=== PATIENT | female | born 1935 | race Caucasian/White ===

== ENCOUNTER 2024-05-23 23:42 | Inpatient (IN) | payer OTHER, SELFPAY ==
[2024-05-23] VITALS (7 sets, daily range): BP systolic 80–109; BP diastolic 37–68; BMI 27.3
--- NOTE | 2024-05-23 20:33 | ED.GENMED ---
History of Present Illness
General
Chief Complaint: Musculo-Skeletal Complaint
Source: patient
Exam Limitations: none
Time Seen by Provider: 05/23/24 20:31
History of Present Illness
History of Present Illness:
See MDM
Past History
Past History
ED Past Medical History: HTN, NIDDM and Other (vertigo)
ED Past Surgical History: Appendectomy, Cholecystectomy, Gynecological (Hysterectomy) and Orthopedic
Social History
Tobacco: Non-smoker
Personal: Single
Living: alone
Phy Exam
Physical Exam
Physical Exam:
See MDM
Sepsis
Sepsis Screening
Sepsis Assessment: Severe Sepsis
Sepsis Screening: Hypotension and Sustained Hypotension-SBP <90,MAP<65, or SBP decrease 40mmHg or more
Sepsis Screen
Sepsis Screen: Severe Sepsis
Date: 05/23/24
Time: 23:25
Course
Orders/Labs/Results
Orders:
Orders
05/23/24 20:32
CT Head W/o Iv Contrast Urgent
Comment:
Reason For Exam: fall, altered
Ankle, Right 3 view CR [CR Ankle - Right Min 3 Views *] Urgent
Comment:
Reason For Exam: fall, R ankle pain
Hip, Right 2-3 Views [CR Hip - RT w/wo Pel 2-3 Vw*] Urgent
Comment:
Reason For Exam: fall, R hip pain
Include a pelvis x-ray?: Yes
05/23/24 20:33
Electrocardiogram (*1) Urgent
Reason for Study: Fatigue / Weakness
EKG- Treatment ONCE
05/23/24 20:59
Type+Screen Urgent
Complete Blood Count/With Diff Urgent
Comprehensive Metabolic Panel Urgent
NT-proBNP Urgent
PTT Urgent
Prothrombin Time Urgent
Troponin I Urgent
Urinalysis Reflex To Culture Urgent
Date Specimen was Collected: 05/23/24
Time Specimen was Collected: 20:45
Urine Microscopic Reflex Cult Urgent
Urine Culture Urgent
ERIKA Source: U
Specimen Description:
Date Specimen was Collected: 05/23/24
Time Specimen was Collected: 20:45
05/23/24 21:31
Cefepime HCl [Maxipime] 1,000 mg IV NOW STA
05/23/24 21:49
Lactic Acid Q4H
Comment: CANCEL 2nd LACTIC ACID IF 1st LACTIC ACID IS LESS THAN 2
Blood Culture Q30M
ERIKA Source: Blood/Venous
Specimen Description:
Blood Culture Q30M
ERIKA Source: Blood/Venous
Specimen Description:
05/23/24 22:07
0.9% Sodium Chloride 1000 ml [Nss] 1,000 ml IV BOLUS
05/23/24 22:39
EKG [Electrocardiogram (*1)] Urgent
Reason for Study: Bradycardia / Tachycardia
EKG- Treatment ONCE
05/23/24 23:00
Flush (0.9% Sodium Chloride) [Flush (Nss)] See Dose Instructions IV PER PROTOCOL
05/24/24 01:45
Lactic Acid Q4H
Comment: CANCEL 2nd LACTIC ACID IF 1st LACTIC ACID IS LESS THAN 2
Abnormal Lab Results
05/23/24
20:59
WBC 14.5 H 10^3/uL
(4.8-10.8)
RBC 3.40 L 10^6/uL
(4.20-5.40)
Hgb 8.0 L g/dL
(12.0-16.0)
Hct 25.4 L %
(37.0-47.0)
MCV 74.7 L fL
(81.0-99.0)
MCH 23.5 L pg
(27.0-31.0)
MCHC 31.5 L g/dL
(33.0-37.0)
RDW 15.4 H %
(11.5-14.5)
Plt Count 92 L 10^3/uL
(130-400)
Abs Immat Gran (auto) 0.1 H 10^3/uL
(0-0.05)
Absolute Neuts (auto) 13.1 H 10^3/uL
(1.4-6.5)
Absolute Lymphs (auto) 0.5 L 10^3/uL
(1.2-3.4)
Absolute Monos (auto) 0.9 H 10^3/uL
(0.1-0.6)
Neutrophils % 90.2 H %
(42.2-75.2)
Lymphocytes % 3.1 L %
(20.5-51.1)
APTT 35.5 H Sec
(23.4-35.0)
BUN 54 H mg/dl
(7-17)
Creatinine 1.4 H mg/dL
(0.6-1.0)
Glucose 149 H mg/dl
(70-99)
AST 37 H U/L
(14-36)
ALT 46 H U/L
(0-35)
Total Protein 6.0 L g/dl
(6.3-8.2)
Ur Occult Blood Reflex 3+ A
(Negative)
Urine Nitrite (Reflex) Positive A
(Negative)
Leukocyte Esterase Rfl 2+ A
(Negative)
Urine WBC (Reflex) >100 A /HPF
(0-5)
Urine Albumin (Reflex) 1+ A
(Neg - Trace)
05/23/24 20:59
05/23/24 20:59
Vital Signs
Initial and Last Documented VS:
Initial Vital Signs
Temp Pulse Resp BP Pulse Ox
90.3 F L 54 12 98/64 100
05/23/24 20:30 05/23/24 20:30 05/23/24 20:30 05/23/24 20:30 05/23/24 20:30
Last Documented Vital Signs
Temp Pulse Resp BP Pulse Ox
90.3 F L 56 16 109/68 99
05/23/24 20:30 05/23/24 22:44 05/23/24 22:44 05/23/24 22:44 05/23/24 22:44
MDM/Problems Addressed
Differential Diagnosis Includes:
HPI and MDM Narrative:
88-year-old female presenting for evaluation of altered mental status and trouble with weightbearing. Per EMS, patient had a fall 2 days ago. Since then, she has had trouble weightbearing and decreased p.o. intake. Family states she has a history
of dementia but has noted that she has been more confused lately. On exam, patient is lying in bed comfortably and in no acute distress. She does wince when her right hip and her right ankle are palpated. The extremity is otherwise
neurovascularly intact but is a few inches shorter compared to the other side. Patient found to be bradycardic but denies chest pain or shortness of breath. She is a poor historian given her dementia. Patient also found to have pitting edema to
both legs which is new per family
Given the fall and altered mental status, will obtain CT head. Given the fall and trouble weightbearing, will obtain right hip and right ankle x-ray. Will obtain EKG and basic blood work and ultimately admit
Physical exam
General: Sitting in bed comfortably. Smiling
HEENT: protecting airway
Neck: supple
CV: No evidence of cyanosis. Bradycardic
Resp: No accessory muscle use
Abd: No tenderness to palpation
Extremities: Tenderness to palpation of right hip and right ankle. Right leg is shorter compared to left leg. Sensation and pulses intact distally. Bilateral +2 pitting edema bilateral legs
Neuro: alert
Psych: Flat affect
Skin: Intact
Problems Addressed including Acute and Chronic Conditions affecting care:
1. Right hip and ankle injury
Acuity: acute
Prognosis: stable
Details: Will obtain x-ray to rule out fracture
2. Altered mental status after fall
Acuity: acute
Prognosis: stable
Details: Will obtain CT head
3. Bradycardia with pitting edema
Acuity: acute
Prognosis: stable
Details: Will obtain basic blood work, troponin and BNP
Updates
8:38 PM soon after arrival, vital signs obtained and patient found to be hypothermic requiring Luis Angel hugger
9:20 PM both sons are at bedside and confirming DNR status
No obvious fracture of ankle or hip. When we rolled the patient to assess her stool, there is no pain elicited. The pain appears to be improved. Rectal exam shows brown stool guaiac negative
Patient started on cefepime for UTI and started on IV fluids for hypotension.
Differential Diagnosis (but not limited to): Congestive heart failure, right hip fracture, right ankle fracture, UTI
Testing considered: CT neck with there is no tenderness to palpation
Drug therapy (if applicable): OTC meds, please see d/c instruction regarding Rx drugs
Amount and/or Complexity of Data Reviewed
Clinical info obtained from: EMS
External data reviewed: N/A
Labs I independently reviewed (but not limited to): WBC, UA
Radiology: The CT scan was personally and independently reviewed. In addition, official CT report reviewed.
Pulse Ox: not hypoxic
EKG independently reviewed: Sinus bradycardia, normal axis, no STEMI
Environmental Resource Specialist: Bradycardia
Critical Care: the high probability of a clinically significant, sudden or life threatening deterioration of the cardiopulmonary system(s) required my full and direct attention, intervention and personal management. The aggregate critical care
time was 31 minutes. This time is in addition to time spent performing reported procedures but includes the following:
[x] Data Review and interpretation
[x] Patient assessment and monitoring of vital signs
[x] Documentation
[x] Medication orders and management
Risk of Complication:
Social Determinants of health: Good social support
Discussed with other providers: Hospitalist
Escalation of Care includes Admit/Obs: Given the altered mental status and concern for severe sepsis, will admit
Occasional wrong word or 'sound a like' substitutions may have occurred due to the inherent limitations of voice recognition software. Read the chart carefully and recognize, using context, where substitutions have occurred.
*Critical Care Note
Total Time (30-74mins, 75-104mins- exclusive of procedures): 31 min
ED Attending Note
-
Portions of this chart may have been created with voice recognition software.� Occasional wrong word or��sound alike� substitutions may have occurred due to the inherent limitations of voice recognition software.
Discharge Plan
Departure
Patient Disposition: Admit
Date of Disposition: 05/23/24
Time of Disposition: 22:16
Admit to: IMU
Presentation/result/management discussed w/ accepting MD/DO: Hospitalist
Discharge Problem:
Sepsis, Acute UTI, Anemia
Prescriptions:
No Action
losartan-hydrochlorothiazide 1 EACH tablet
1 ea PO DAILY
doxycycline hyclate 20 MG tablet
1 tab PO MOWEFR PRN (Reason: rosacea)
glipizide 10 MG tablet extended release 24hr
20 mg PO DAILY
omeprazole 20 MG capsule,delayed release(DR/EC)
20 mg PO PRN PRN (Reason: gerd)
Ca-D3-mag dl-eoyr-wxe-georgi-bor [Calcium 600-D3 Plus (mag-zinc)] 1 EACH tablet
1 ea PO DAILY
calcium carbonate [Antacid (calcium carbonate)] 1 TABLET tablet,chewable
1 tab PO PRN PRN (Reason: GERD)
Referrals:
Evi Zheng CRNP [Family Provider] -
Interventions
Interventions:
*Risk Screen - Suicide Last Done: 05/23/24 20:30
*General Assessment Last Done: 05/23/24 20:30
*Neglect/Abuse Screening Last Done: 05/23/24 20:30
ED- Fall Risk Assessment Last Done: 05/23/24 21:16
*ED COVID-19 Vaccine History Last Done: 05/23/24 21:16
ED-Musculoskeletal Assessment Last Done: 05/23/24 21:16
Discharge Date and Time
Print Language: FRENCH
[2024-05-23 21:14] LABS: % Basophils 0.3 % (0-2); % Eosinophils 0.1 % (0-6); % Immature Granulocytes 0.5 % (0-0.5); % Lymphocytes 3.1 % (20.5-51.1); % Monocytes 5.8 % (1.7-9.3); % Neutrophils 90.2 % (42.2-75.2); Absolute Immature Granulocytes 0.1 10^3/uL (0-0.05); Absolute Lymphocytes 0.5 10^3/uL (1.2-3.4); Absolute Monocytes 0.9 10^3/uL (0.1-0.6); Absolute Neutrophils 13.1 10^3/uL (1.4-6.5); Hematocrit 25.4 % (37.0-47.0); Mean Corp Hgb Conc. 31.5 g/dL (33.0-37.0); Mean Corpuscular Hgb 23.5 pg (27.0-31.0); Mean Corpuscular Volume 74.7 fL (81.0-99.0); Nucleated Red Blood Cells % 0.7 %; Red Cell Dist. Width 15.4 % (11.5-14.5); White Blood Cell Count 14.5 10^3/uL (4.8-10.8)
[2024-05-23 21:17] LABS: INR 1.06; PT 14.1 Sec (11.4-14.6)
[2024-05-23 21:18] LABS: APTT 35.5 Sec (23.4-35.0)
[2024-05-23 21:21] LABS: ALT (SGPT) 46 U/L (0-35); AST (SGOT) 37 U/L (14-36); Albumin 3.6 g/dl (3.5-5.0); Alkaline Phosphatase 115 U/L (38-126); Blood Urea Nitrogen 54 mg/dl (7-17); Calcium 9.1 mg/dl (8.4-10.2); Carbon Dioxide 24 mmol/L (22-30); Chloride 106 mmol/L (98-107); Glucose 149 mg/dl (70-99); Potassium 4.3 mmol/L (3.5-5.1); Sodium 141 mmol/L (135-145); Total Bilirubin 0.3 mg/dl (0.2-1.3); eGFR 36.64
[2024-05-23 21:23] LABS: Urine Albumin 1+ (Neg - Trace); Urine Bilirubin Negative (Negative); Urine Character Very Cloudy (Clear); Urine Color Yellow; Urine Glucose Negative (Negative); Urine Ketone Negative (Negative); Urine Leukocyte 2+ (Negative); Urine Nitrite Positive (Negative); Urine Occult Blood 3+ (Negative); Urine Specific Gravity 1.025 (<1.030); Urine Urobilinogen Negative (Neg - 1+)
[2024-05-23 21:34] LABS: NT-proBNP 491 pg/ml; Troponin I 0.018 ng/ml
[2024-05-23 21:50] LABS: Platelet Count 92 10^3/uL (130-400)
[2024-05-23 21:54] LABS: Urine White Cell >100 /HPF (0-5)
[2024-05-23] MEDS: MAXIPIME 1000 MG IV (22:01)
[2024-05-23 22:07] LABS: Lactic Acid 1.3 mmol/L (0.7-2.0)
[2024-05-23] MEDS: NSS 1000 IV (22:11)
--- NOTE | 2024-05-23 22:39 | EDRN ---
2233: Pt with an approximately 30second long pause with agonal respirations. This RN immediately to the bedside and alerted additional ER staff and pt ER physician Dr. Lobo. Pt appeared to be asystole which resolved independently. Repeat EKG
ordered. Pt awake and conversant at this time, currently asking if she is staying overnight.
--- NOTE | 2024-05-23 23:05 | HPS.HSE ---
Family Physician
-
Family Physician: Evi Zheng
Chief Complaint
-
Weakness and fall found to have urinary tract infection and sepsis
History of Present Illness
This is a 88-year-old female with past medical history of mfx-dwnptxz-[id number] diabetes, GERD, hypertension and hyperlipidemia who also has advanced dementia of unknown type presented to the emergency department with a fall about 2 days ago.
Family denies any loss of consciousness. Patient was unable to provide much history. They reported that she has had some altered mental status for the last 2 days. They did not know if she has had any fevers or chills. She is unable to tell if
she has had any other symptoms. No apparent nausea vomiting or diarrhea. No apparent dysuria but patient is unable to tell us anything. She had no immediate trauma. Due to ongoing altered mental status the patient was brought to the emergency
department. There is no known sick contacts.
In the ED she was found to be hypothermic to 90.3, blood pressure was 110/68 with a pulse of 50 and satting 99% on room air. ECG shows sinus bradycardia to 46 without any interval abnormalities. She had a white count of 14.5 hemoglobin was 8 and
platelet count was 92. Electrolytes were normal. BUN and creatinine were elevated at 54 and [address] was unremarkable. Hip x-ray shows no acute fractures or dislocation. Ankle x-ray shows no fracture or dislocation.
Medical History
Past Medical History
Past Medical History: Reports GERD, HTN and NIDDM
Past Surgical History: Reports Appendectomy, Cholecystectomy and Orthopedic (Left knee replacement, right knee replacement,)
Social History
Tobacco: Non-smoker
Alcohol: None
Drug: None
Personal: Single
Living: With Family
Family History
Family History: Not pertinent
Allergies / Home Medications
Allergies reflects when Allergies were last updated in [facility].
Home Medications with original date entered in [facility]
Allergy/Medication List:
Allergies
Allergy/AdvReac Type Severity Reaction Status Date / Time
Iodinated Contrast Media Allergy Hives Verified 07/19/19 14:20
oxycodone HCl AdvReac Mild Vomiting Verified 07/19/19 14:20
[From OxyContin]
IV kidney dye Allergy Hives Uncoded 07/19/19 14:20
Home Medications
losartan 100 mg-hydrochlorothiazide 12.5 mg tablet 1 ea PO DAILY 12/08/12
doxycycline hyclate 20 mg tablet 1 tab PO MOWEFR PRN rosacea 09/22/13
calcium 600 mg-D3 20 mcg-magnesium 50 he-Ak-hjkzoa-william-boron tablet (Calcium 600-D3 Plus (mag-zinc)) 1 ea PO DAILY 07/19/19
calcium carbonate (Antacid (calcium carbonate)) 1 tab PO PRN PRN GERD 07/19/19
glipizide 10 mg tablet, extended release 24 hr 20 mg PO DAILY 07/19/19
omeprazole 20 mg capsule,delayed release 20 mg PO PRN PRN gerd 07/19/19
Review of Systems
-
Unable to obtain full review of systems at this time due to: Dementia
Physical Exam
Vital Signs
Vital Signs
Temp Pulse Resp BP Pulse Ox
90.3 F L 56 16 109/68 99
05/23/24 20:30 05/23/24 22:44 05/23/24 22:44 05/23/24 22:44 05/23/24 22:44
Physical Exam
General: Well Developed, No Apparent Distress and Comfortable
HEENT: NormoCephalic, Anicteric and Moist mucous membranes
Respiratory: Clear
Cardiac: S1/S2 and Bradycardia
Breast: Deferred by me
GI: Soft, Non Tender, Non Distended and Normal Bowel Sounds
Rectal: Deferred by Provider
Genito-urinary: Deferred by me
Musculoskeletal: No Clubbing, No Cyanosis and No Edema
Neuro: Awake and Oriented (oriented to person and place)
Hematologic/Lymphatic: No Lymphadenopathy
Psych: Calm
Laboratory Results
-
05/23/24 20:59
05/23/24 20:59
Laboratory Results
PT 14.1 Sec (11.4-14.6) 05/23/24 20:59
INR 1.06 05/23/24:59
APTT 35.5 Sec (23.4-35.0) H 05/23/24:59
Lactic Acid 1.3 mmol/L (0.7-2.0) 05/23/24 21:49
Total Bilirubin 0.3 mg/dl (0.2-1.3) 05/23/24:59
AST 37 U/L (14-36) H 05/23/24:59
ALT 46 U/L (0-35) H 05/23/24:59
Alkaline Phosphatase 115 U/L (38-126) 05/23/24:59
Troponin I 0.018 ng/ml 05/23/24:59
Data Reviewed
-
Diagnostic Radiology: Report Reviewed by me
CT Scan: Report Reviewed by me
Medical Tests (Nuc Med, Echo, EKG etc): Image Personally Visualized and interpreted
Lab Data: Labs Reviewed by me
Impression/Plan
-
IMPRESSION:
88-year-old female presenting to the emergency department with 2 days of altered mental status and multiple falls at home without any signs of trauma on exam or imaging. Found to have hypothermia, leukocytosis and very positive UA concerning for
urinary source dependent sepsis. While in the emergency department she did developed a pulse after about 30 seconds long and spontaneously recovered.
PLAN:
1. Sepsis - Likely urinary source. No respiratory symptoms. HD stable but severe hypothermia.
- admit to ICU
- warming measures
- blood cultures, urine cultures
- check xray
- cefepime iv q 8 for now
- trend lactate check procal in am
- IV fluids for now, pressors may be needed
- hold anti hypertensives
- check tsh , cortisol
2. Bradycardia with sinus pause - 30 second pause. Spontenous recovery with improved mental status. No interval anomally. Patient is on metoprolol at home. D/W family, ppm temporary or otherwise ok.
- hold all beta blocking agents
- continue warming and sepsis management
- if persistently bradycardic, will start dopamine gtt
- if not effective, cardiology will place temporary ppm
- pads on
- cardiology consult
3. DM II
- insulin sliding scale q6h for now
- npo with sips of clears
4. Anemia - She appears to have pancytopenia, worse from 1 year ago.
- type and screen
- check iron studies, tsh, and b12, folate
- trend h&h transfuse for Hgb < 8
DVT PPX - heparin sq
Code status - DNR
--- NOTE | 2024-05-23 23:40 | EDRN ---
2340: pt with another approximate 20 second pause with snoring respirations. PT returned to sinus bradycardia, awake and alert, without intervention. Dr. Flores made aware, verbal orders to pace patient if heart rate drops to the 30s or becomes
hypotensive. Plan of care ongoing, new orders followed.
[2024-05-24] VITALS (59 sets, daily range): BP systolic 81–128; BP diastolic 55–83; PULSE 80; BMI 25.7
[2024-05-24] MEDS: DOPamine 400 MG 250 IV ×2 (00:06→17:32)
[2024-05-24 00:20] LABS: Glucose - Point of Care 132 mg/dl (70-99)
[2024-05-24] MEDS: NOVOLOG FLEXPEN-LOW RESISTANCE SC ×5 (00:23→23:47)
--- NOTE | 2024-05-24 00:30 | PTCARENOTE ---
Rec'd pt from ER via stretcher on dopa gtt at 5mic accomp by WATCH DIAL PRINTER, Pt oriented to icu routine, confused, awake, follows simple commands, CHG bath done, JOSÉ LUIS at 3mm, sluggish, SR, BP stable, dopa to keep hr >50, weak distal pulses, + LE edeam, skin
cool/dry, temp 91.8 R- warming blanket applied, O2 2 liters nc, sat 94, lungs decr, hypo bowel sounds, purewick applied
[2024-05-24] MEDS: NSS 1000 IV ×3 (00:57→19:18)
[2024-05-24] MEDS: ZOFRAN 4 MG IV (01:00)
--- NOTE | 2024-05-24 01:00 | PTCARENOTE ---
vomited brown food particles, zofran 4mg iv given
[2024-05-24 04:15] LABS: Hematocrit 24.8 % (37.0-47.0); Hemoglobin 7.7 g/dL (12.0-16.0); Mean Corpuscular Hgb 23.3 pg (27.0-31.0); Mean Corpuscular Volume 74.9 fL (81.0-99.0); Platelet Count 104 10^3/uL (130-400); Red Blood Cell Count 3.31 10^6/uL (4.20-5.40); Red Cell Dist. Width 15.6 % (11.5-14.5); White Blood Cell Count 18.7 10^3/uL (4.8-10.8)
--- NOTE | 2024-05-24 04:15 | PTCARENOTE ---
sys reviewed, pulling off mamadou hugger, wanting to climb oob, bed alarm on,bilat mitts applied
[2024-05-24 04:36] LABS: Blood Urea Nitrogen 54 mg/dl (7-17); Calcium 8.5 mg/dl (8.4-10.2); Carbon Dioxide 20 mmol/L (22-30); Chloride 111 mmol/L (98-107); Estimated Creatinine Clearance 25 ml/min; Glucose 84 mg/dl (70-99); HDL Cholesterol 92 mg/dl; Iron 38 ug/dl (37-170); LDL Cholesterol, Calculated 22 mg/dl; Magnesium 1.8 mg/dl (1.6-2.3); Phosphorus 3.7 mg/dl (2.5-4.5); Potassium 4.2 mmol/L (3.5-5.1); Sodium 143 mmol/L (135-145); Total Cholesterol 131 mg/dl (50-199); Triglyceride 86 mg/dl (10-149); Very Low Density Lipoprotein 17 mg/dl (0-30); eGFR 36.64
--- NOTE | 2024-05-24 04:36 | PTCARENOTE ---
Addendum entered by Jennifer Schmid RN 05/24/24 04:37:
sat- 88-O2 incr to 4 liters nc
Original Note:
6 sec pause, only P waves->SR
[2024-05-24 04:44] LABS: Percent Saturation 7 % (20-50); Total Iron Binding Capacity 480 ug/dl (265-497)
[2024-05-24 04:45] LABS: Troponin I 0.027 ng/ml
--- NOTE | 2024-05-24 04:57 | PTCARENOTE ---
bladder scanned for 123ml
[2024-05-24 05:10] LABS: Procalcitonin 0.08 ng/ml (0.0-0.25)
[2024-05-24 05:23] LABS: Vitamin B12 794 pg/ml (239-931)
[2024-05-24 05:41] LABS: Glucose - Point of Care 72 mg/dl (70-99)
--- NOTE | 2024-05-24 06:02 | PTCARENOTE ---
while sleeping sat 88- o2 incr to 6 liters
--- NOTE | 2024-05-24 07:00 | PTCARENOTE ---
Received patient from night clerk auditor. patient is lethargic/drowsy arousable, confused. Responds to name. follows some simple commands. patient has bilateral mitts on. She is on 4L nasal cannula, 89%, now on 6L nasal cannula. Patient is in a
sinus rhythm on dopamine gtt. HR in 80s. Heparin for dvt prophalaxis. She is currently NPO. Purewick in place for urinary incontinence. IVF infusing into right AC. Assessment as charted.
[2024-05-24] MEDS: HEPARIN 5000 UNITS SC ×2 (07:43→16:47)
[2024-05-24] MEDS: DESENEX/MITRAZOL/ZEASORB 1 APPLIC TOPICAL ×2 (07:43→21:00)
--- NOTE | 2024-05-24 08:11 | CON.CAR ---
Addendum entered and electronically signed by Brennen Rosales MD 05/24/24 11:18:
88 yo female with PMH of CVA, paroxysmal SVT, aortic stenosis, dementia, DNR status admitted with UTI, septic shock, severe hypothermia. We are consulted for bradycardia. She is lethargic and does not offer history. Exam with RRR, II/ systolic
murmur at RUSB, trace LE edema. Bcx pending. Tele: SR, periods of 2:1, complete heart block. Also reported 30 sec of asystole in ED.
Continue dopamine. Toprol XL washout. Echo today. Discussed with EP: conduction abnormalities may be reversible in setting of severe hypothermia to 90F.
Original Note:
Consultation
Consultation Request
Date/Time Consultation Requested: 05/24/2024 00:04
Date/Time Consultation Performed: 05/24/2024 08:20
Requesting Provider: Dr. Dan
Performing Provider: JEFF Medina for Dr. Rosales
Reason for Consultation: Bradycardia
Medical History
-
Chief Complaint: Hip pain
History of Present Illness:
Melodie Woods is an 88-year-old female (known to Dr. Dennis Askew, her primary councilor), with SVT, hypertension, hyperlipidemia, type 2 diabetes mellitus, CVA, aortic stenosis, and dementia who presented after a fall. She was confused, having
difficulty weightbearing. She was found to be hypothermic and had episodes of bradycardia. Upon further review of telemetry she has complete heart block, Wenckebach, and sinus bradycardia. She is unable to participate in this consultation. She is
currently on dopamine at 5 mcg/kg/min. She has been admitted with sepsis. Her care is also being managed by infectious disease and the furnace maintenance service in addition to the hospitalist service.
Past Medical History
Past Medical History: Arrhythmias (SVT), CVA, HTN, Hypercholesterolemia, NIDDM, Valvular Disease (aortic stenosis) and Other (Dementia)
Past Surgical History: Appendectomy, Cholecystectomy, Gynecological and Orthopedic
Social History
Living: Assisted Living ([facility])
Employment: Retired
Family History
Family History: Unable to Obtain
Allergies / Home Medications
Allergy/AdvReac Type Severity Reaction Status Date / Time
Iodinated Contrast Media Allergy Hives Verified 07/19/19 14:20
oxycodone HCl AdvReac Mild Vomiting Verified 07/19/19 14:20
[From OxyContin]
�Medication �Instructions �Recorded �Confirmed �Type
losartan 100 1 ea PO DAILY 12/08/12 07/19/19 History
mg-hydrochlorothiazide 12.5 mg
tablet
doxycycline hyclate 20 mg tablet 1 tab PO MOWEFR PRN rosacea 09/22/13 07/19/19 History
calcium 600 mg-D3 20 mcg-magnesium 1 ea PO DAILY 07/19/19 07/19/19 History
50 br-Jl-meoane-william-boron
tablet (Calcium 600-D3 Plus
(mag-zinc))
calcium carbonate (Antacid 1 tab PO PRN PRN GERD 07/19/19 07/19/19 History
(calcium carbonate))
glipizide 10 mg tablet, extended 20 mg PO DAILY 07/19/19 07/19/19 History
release 24 hr
omeprazole 20 mg capsule,delayed 20 mg PO PRN PRN gerd 07/19/19 07/19/19 History
release
Review of Systems
-
Unable to obtain full review of systems at this time due to: Other (Unable)
Physical Exam
Vital Signs
Temp Pulse Resp BP Pulse Ox
95.9 F L 82 17 110/67 91
05/24/24 07:08 05/24/24 06:45 05/24/24 06:45 05/24/24 06:30 05/24/24 07:40
Lab Results
05/24/24 03:38
05/24/24 03:38
Troponin I 0.027 ng/ml D 05/24/24 03:38
Usz-U-Gyihyjryslt Pept 491 pg/ml 05/23/24 20:59
Physical Exam
General: Well Developed, Well Nourished and No Apparent Distress
HEENT: Normocephalic, Anicteric and Moist Mucous Membranes
Respiratory: Other (Coarse)
Cardiac: S1/S2, Irregular Rhythm and Peripheral Edema (+2 pitting bilateral lower extremity edema)
Breast: Deferred by me
GI: Soft, Non Tender, Non Distended and Normal Bowel Sounds
Rectal: Deferred by Provider
Genito-urinary: No Costovertebral Tender
Musculoskeletal: No Clubbing and No Cyanosis
Skin: Warm and Dry
Neuro: Other (Opens eyes spontaneously)
Hematologic/Lymphatic: No Lymphadenopathy
Psych: Calm
Impression / Plan
-
IMPRESSION/PLAN: 88F with SVT, hypertension, hyperlipidemia, type 2 diabetes mellitus, cardioembolic stroke, aortic stenosis, and dementia who presented after a fall. She was confused, having difficulty weightbearing, hypothermic, and was found to
be bradycardic with sinus pauses.
Primary councilor: Dr. Dennis Askew
Sepsis
-Arrived hypothermic with a rectal temp of 90.3 �F
-Cultures are pending
-Worsening pancytopenia may be in the setting of sepsis
Acute hypoxic respiratory failure
-Requiring 6 L nasal cannula
-CXR with small pleural effusion
-She has bilateral lower extremity edema and intermittent heart block, follow I/Os to avoid volume overload
Heart block
-Complete heart block, Wenckebach, and sinus bradycardia on telemetry
-On dopamine like at 5 mcg/kg/min, continue
-TSH stable
-She currently has a reversible cause (hypothermia), will reassess rhythms after she reaches normothermia
-Echocardiogram
-She is a DNR, will update family after TTE
OLI, per primary
Pancytopenia, per primary
Hypertension, agents on hold
Aortic stenosis, update echocardiogram
PSVT, follow telemetry, hold AV tunde agents
Prior CVA, no atrial fibrillation on outpatient cardiac monitoring, on daily aspirin at home
NIDDM, on oral agents in the outpatient setting, per primary
Alzheimer's dementia, on memantine
Data Reviewed
-
EKG: Report Reviewed by me (Sinus bradycardia, LVH, rate 54)
--- NOTE | 2024-05-24 08:29 | CON.INTV ---
Consultation
Consultation Request
Date/Time Consultation Requested: 05/24/202430
Date/Time Consultation Performed: 05/24/2024826
Requesting Provider: JEFF Guo
Performing Provider: Dr. Figueredo
Reason for Consultation: Bradycardia
Medical History
-
Chief Complaint: Fall
History of Present Illness:
88-year-old female with a past medical history of dementia, DM type II, GERD and hypertension who presented with fall. 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 Patient is a poor historian due to advanced dementia.
Patient was also not herself of the last 2 days. The family has denied any loss of consciousness. Initially in the ER she was hypothermic to 90.3 �F via rectal temperature, bradycardic to 54 bpm, breathing at 12 breaths/min, BP 98/64 and
saturating 100% on RA. Initial labs showed leukocytosis to 14.5, Hb 8, platelet count 92, creatinine 1.4, AST 37, ALT 46, procalcitonin negative at 0.08, and urinalysis was suspicious for UTI with positive nitrites, +2 leukocyte esterase and >100
urine WBC. Urine and blood cultures collected. 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 CXR showed tiny right-sided pleural
effusion versus pleural thickening with worsening elevation of the right hemidiaphragm. In the ER she was given IVF with NS at 0.9% x 1L and cefepime. Due to her bradycardia, dopamine drip was started and she was admitted to the ICU. Sizing Machine Operator
services consulted for additional management/recommendations.
Pt seen and evaluated this AM. Had 5 second pause this AM. She remains lethargic this AM. Currently, heart rate 73, saturating 94% on 6L/min and BP 99/69.
PMHx: Advanced dementia, DM type II, GERD, hypertension
PSHx: Appendectomy, cholecystectomy, left knee replacement, right knee replacement
Past Medical History
Past Medical History: Other (Above as per HPI)
Past Surgical History: Other (Above as per HPI)
Social History
Tobacco: Non-smoker
Alcohol: None
Drug: None
Personal: Single
Living: With Family
Family History
Family History: Reviewed & Not Pertinent
Allergies / Home Medications
Allergies
Allergy/AdvReac Type Severity Reaction Status Date / Time
Iodinated Contrast Media Allergy Hives Verified 07/19/19 14:20
oxycodone HCl AdvReac Mild Vomiting Verified 07/19/19 14:20
[From OxyContin]
Home Medications
�Medication �Instructions �Recorded �Confirmed �Last Taken �Type
losartan 100 1 ea PO DAILY 12/08/12 07/19/19 10/17/13 21:00 History
mg-hydrochlorothiazide 12.5 mg
tablet
doxycycline hyclate 20 mg tablet 1 tab PO MOWEFR PRN rosacea 09/22/13 07/19/19 10/16/13 22:00 History
calcium 600 mg-D3 20 mcg-magnesium 1 ea PO DAILY 07/19/19 07/19/19 Unknown History
50 jh-Do-olqyhb-william-boron
tablet (Calcium 600-D3 Plus
(mag-zinc))
calcium carbonate (Antacid 1 tab PO PRN PRN GERD 07/19/19 07/19/19 Unknown History
(calcium carbonate))
glipizide 10 mg tablet, extended 20 mg PO DAILY 07/19/19 07/19/19 Unknown History
release 24 hr
omeprazole 20 mg capsule,delayed 20 mg PO PRN PRN gerd 07/19/19 07/19/19 Unknown History
release
Review of Systems
-
Unable to Obtain full review of systems at this time due to: Dementia and Acuity
Vitals / Labs / Diagnostic Testing
Vital Signs
Temp Pulse Resp BP Pulse Ox
95.9 F L 82 17 110/67 91
05/24/24 07:08 05/24/24 06:45 05/24/24 06:45 05/24/24 06:30 05/24/24 07:40
Lab Data
05/24/24 03:38
05/24/24 03:38
Laboratory Results
05/23/24
20:59
PT 14.1
INR 1.06
APTT 35.5 H
Diagnostic Testing:
Physical Exam
-
HEENT: Normocephalic and Anicteric
Cardiovascular: S1/S2, Rub (negative) and Peripheral Edema (+2 lower extremity pedal edema bilaterally)
Respiratory: Wheeze (negative), Rales (negative), Rhonchi (Bilaterally mainly during expiration) and Non-Labored Respirations
GI: Soft, Non Distended, Non Tender and Normal Bowel Sounds
Neurology: Tremors (negative) and Other (Lethargic, arousable to voice and tactile stimulation but then quickly falls back)
Skin: Warm and Dry
General: Respiratory Distress (negative), Comfortable, Fever (negative) and Chills (negative)
Assessment
-
Assessment: 88-year-old female with a past medical history of dementia, DM type II, GERD and hypertension who presented with fall. 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 Patient is a poor historian due to advanced
dementia. Patient was also not herself of the last 2 days. The family has denied any loss of consciousness. Initially in the ER she was hypothermic to 90.3 �F via rectal temperature, bradycardic to 54 bpm, breathing at 12 breaths/min, BP 98/64
and saturating 100% on RA. Initial labs showed leukocytosis to 14.5, Hb 8, platelet count 92, creatinine 1.4, AST 37, ALT 46, procalcitonin negative at 0.08, and urinalysis was suspicious for UTI with positive nitrites, +2 leukocyte esterase and
>100 urine WBC. Urine and blood cultures collected. 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 CXR showed tiny right-sided
pleural effusion versus pleural thickening with worsening elevation of the right hemidiaphragm. In the ER she was given IVF with NS at 0.9% x 1L and cefepime. Due to her bradycardia, dopamine drip was started and she was admitted to the ICU.
Sizing Machine Operator services consulted for additional management/recommendations.
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
Impression:
#Bradycardia arrhythmia requiring dopamine drip
#Hypothermia
#Acute respiratory failure with hypoxia likely due to sepsis with acute organ dysfunction
#UTI with sepsis
#Leukocytosis
#Mild transaminitis
#Acute anemia
#Acute thrombocytopenia likely due to sepsis
#OLI
#Metabolic acidosis with preserved anion gap likely due to OLI
#Right hemidiaphragm elevation (progressing)
#Abnormal CXR with small right-sided pleural effusion versus pleural thickening
#Fall
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
Plan:
- Bradycardia arrhythmia likely multifactorial due to hypothermia in setting of infection/sepsis from UTI and home toprol-XL use
- Hopefully as her temperature improves and antibiotics are continued we can wean her off the dopamine drip
- Try to get her off the dopamine drip today but then started developing 4-5-second pauses; cardiology aware
- Continue to hold negative chronotropes
- Cardiology consulted to evaluate for pacemaker - recs appreciated
- Continue Luis Angel Hugger to reach normothermia, increasing temperature by 0.5-1�C/h
- Continue with antibiotics, currently on cefepime
- Follow-up urine culture + blood cultures
- Trend WBC; monitor for fever
- Continue with maintenance IVF with NS 0.9% at 75 cc/h
- Maintain SpO2 >90-94% and wean down supplemental O2 as tolerated
- Aspiration precautions
- Maintain MAP>65
- Trend sHCO3 --> if bicarb continues to drop then start bicarb gtt, however monitor fluid intake given risk for volume overload in setting of bradycardia
- Trend LFTs
- Trend sCr and monitor I/O and UOP
- Renally dose all meds/Abx
- Replete electrolytes with K>4, Mg>2
- Maintain euglycemia with goal BG 140-180; avoid hypoglycemia (may need IV dextrose supplementation)
- Trend H/H and transfuse if needed to keep Hb>7g/dL; keep plt>20k, unless there is concern for bleeding then keep plt>50k
- prn nebulized bronchodilators - not currently bronchospastic
- If she awakens then would encouraged incentive spirometer use 10x per hour for at least 4 hrs a day
- Eventual PT/OT
- DVT ppx: HSQ
Code status: DNR/DNI
Critical care statement: A total of 40 minutes of critical care time was provided for this patient today. This includes management of unstable vital signs, evaluation of the patient at bedside, reviewing the patient's pertinent medical records
including radiographs, microbiology, laboratory evaluations, and discussion with primary team, consultants, pharmacy, nutrition, physical therapy, case management, charge nurse, critical care nursing, and respiratory therapy.
Data:
CXR 05/24/2024:
New tiny right pleural effusion versus pleural thickening.
Mild cardiomegaly. New.
Mild elevation of the right hemidiaphragm progressed.
[2024-05-24] MEDS: DEXTROSE 50% SYRINGE 12.5 GRAMS IV (09:50)
[2024-05-24 09:59] LABS: Glucose - Point of Care 69 mg/dl (70-99)
--- NOTE | 2024-05-24 10:00 | PTCARENOTE ---
Echo being done at bedside. Repeated blood sugar as patient continues to be lethargic. Sugar was 69 hypoglycemia protocol followed.
[2024-05-24 10:29] LABS: Glucose - Point of Care 165 mg/dl (70-99)
--- NOTE | 2024-05-24 10:59 | CON.ID ---
Consultation
-
Date/Time Consultation Requested: 05/24/24 00:04
Date/Time Consultation Performed: 05/24/24 11:51
Requesting Provider: Dr Dan
Performing Provider: Dr Clifton
Reason for Consultation: sepsis, urinary source
Chief Complaint / Past History
Chief Complaint
Weakness and fall found to have urinary tract infection and sepsis
History of Present Illness
Ms Woods is an 88 year old female with history of DM2, dementia who presented here 05/23 for a fall about 2 days ago. Family denies loss of consciousness but have noted AMS x48 hours. No fevers chills, nausea, vomiting, diarrhea. Unknown if
patient has dysuria. No trauma or sick contacts.
In the ER she was initially hypothermic to 90.3 and warming started, blood pressure was 110/68 with a pulse of 50 and sating 99% on room air. ECG with sinus bradycardia to 46. Started on dopamine. WBC 14.5, hemoglobin was 8 and platelet count was
92. L shift noted. Na 143. BUN 54, Cr 1.4, crcl 25, lactic acid 1.3, t bili 0.3, ast 37, alt 46, alk phos 115, bnp 491, ua >100 wbc/hpf few squamous cells, CXR: tiny R pleural effusion, no infiltrates, Xray severe OA of he BL hips, severe DJD, CT
head: severe temporal volume lobe loss, Xray of the R ankle - chornic avulsion fx ofmedial malleolus, blood cultures x2 in progress, urine culture in progress. Patient has been on cefepime since arrival. Ts have normalized today on rectal probe.
Today wbc 18.7, hgb 7.7, plt 104, CT a/p without contrast done. No history of MDROs on file here.
Past History
Additional Past Medical History:
GERD, HTN and NIDDM
Additional Past Surgical History:
Appendectomy, Cholecystectomy and Orthopedic (Left knee replacement, right knee replacement,)
Allergy History:
Iodinated Contrast Media Allergy (Verified 07/19/19 14:20)
Hives
oxycodone HCl [From OxyContin] Adverse Reaction (Mild, Verified 07/19/19 14:20)
Vomiting
Medications Reviewed: Yes
Social History
Tobacco: Non-Smoker
Alcohol: None
Drug: None
Family History
Family History: Not Pertinent
Review of Systems
Review of Systems
General: Negative Fever or Chills
All systems: All other systems were reviewed and were negative
Vital Signs
Temp Pulse Resp BP Pulse Ox
98.1 F 71 22 99/69 94
05/24/24 10:00 05/24/24 10:15 05/24/24 10:15 05/24/24 10:00 05/24/24 10:15
Physical Exam
Physical Exam
Constitutional: Acutely Ill and Chronically Ill
Cardiovascular: Regular Rate and S1/S2; Negative Murmur or Rub
Pulmonary: Clear and Symmetric; Negative Wheezes, Rales or Rhonchi
Gastrointestinal: Soft, Non Tender, Non Distended and Normal Bowel Sounds
Skin: Warm and Dry; Negative Rash or Jaundice
Neurological: Awake
Lab / Diagnostic Study Results
05/24/24 03:38
05/24/24 03:38
Abs Immat Gran (auto) 0.1 10^3/uL (0-0.05) H 05/23/24 20:59
Absolute Neuts (auto) 13.1 10^3/uL (1.4-6.5) H 05/23/24 20:59
Absolute Lymphs (auto) 0.5 10^3/uL (1.2-3.4) L 05/23/24 20:59
Absolute Monos (auto) 0.9 10^3/uL (0.1-0.6) H 05/23/24 20:59
Absolute Basos (auto) 0.0 10^3/uL (0-0.2) 05/23/24 20:59
Immature Gran % 0.5 % (0-0.5) 05/23/24 20:59
Neutrophils % 90.2 % (42.2-75.2) H 05/23/24 20:59
Lymphocytes % 3.1 % (20.5-51.1) L 05/23/24 20:59
Monocytes % 5.8 % (1.7-9.3) 05/23/24 20:59
Eosinophils % 0.1 % (0-6) 05/23/24 20:59
Basophils % 0.3 % (0-2) 05/23/24 20:59
PT 14.1 Sec (11.4-14.6) 05/23/24 20:59
INR 1.06 05/23/24 20:59
Lactic Acid Cancelled 05/24/24 01:45
Procalcitonin 0.08 ng/ml (0.0-0.25) 05/24/24 03:38
Ur Squamous Epith Cells /LPF (Few) 05/23/24 20:59
Microbiology Results
Micro:
05/23/24 21:49 Blood Culture - Pending
Blood/Venous
05/23/24 21:49 Blood Culture - Pending
Blood/Venous
05/23/24 20:59 Urine Culture - Pending
Urine
Assessment / Plan
Septic Shock
Probable UTI
OLI on CKD
Dementia
Bradycardia - resolved
- urine culture in progress, UA with 100K wbc/hpf
- blood cultures x2 in progress
- reviewed previous culture history on file here - no previous colonization with MDROs
- start ceftriaxone, stop cefepime
- follow cbc, renal function, pressor requirements
Patient is critically ill on pressors, in the ICU
[2024-05-24 12:21] LABS: Glucose - Point of Care 127 mg/dl (70-99)
[2024-05-24] MEDS: ROCEPHIN 2000 MG IV (13:48)
[2024-05-24] MEDS: STERILE WATER FOR INJECTION 20 ML IV (13:49)
--- NOTE | 2024-05-24 15:42 | W.PN.HOSP.TC ---
Today's Communication/Plan
-
Continue IV fluids
Continue dopamine
Aspiration precautions
Continue antibiotics
Assessment / Plan
Assessment / Plan
Attempted to see 2 times and saw the third time. Late documentation.
Patient's son was at bedside
Echo 1 22-25-LVEF 50 to 55%. Mild mitral stenosis. Moderate AAS. Mild to moderate TR
88-year-old female presented with a fall about 2 days ago. Did not lose consciousness. She also has been confused no sick contacts.
Chest x-ray-new tiny right pleural effusion, mild cardiomegaly, mild elevation of right hemidiaphragm
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 Severe multilevel lower lumbar discogenic DJD. Severe calcific atherosclerotic plaques in femoral arteries. Diffuse bone demineralization
Echo 11/17/2022-EF 65 to 70%. Mild to moderate , mild TR, PA pressure of [address] scan of the abdomen and pelvis-small bilateral pleural effusions. Moderate right lower lobe and mild left lower lobe consolidation. Possible pancreatitis. Simple cyst in the left kidney. Prior cholecystectomy. Severe atherosclerotic vascular
disease. Moderate fecal material throughout the colon. Mild diverticulosis
Patient is drowsy arousable
Cardiovascular system S1-S2 appreciated, systolic murmur at aortic area
Chest bilateral coarse breath sounds
Abdomen soft and nontender
Mild bilateral pedal edema noted
Confused
# Sepsis-likely secondary to urinary source
Check blood cultures and urine cultures
Cefepime to be continued
CT scan without any obstruction
# Aspiration pneumonia-bilateral pneumonia on CT
# Pancreatitis on CT. History not reliable. Check lipase
# Acute kidney injury-hold losartan hydrochlorothiazide. Continue IV fluids.
# Bradycardia with sinus pauses and heart rate in 30 s
Hold any AV tunde blocking agents
Cardiology consulted
Echo as above
Dopamine drip started-continue
ZOLL pads on
# Diabetes-meds need to be reconciled. Accu-Cheks and sliding scale coverage
# Elevated LFTs-likely secondary to sepsis-follow
# Anemia--check iron studies
# Thrombocytopenia
# Mild to moderate aortic stenosis
# Severe multilobar lower lumbar discogenic DJD/severe arthritis
# Hypertension
# Diverticulosis
# GERD-continue PPI
# Atherosclerosis/hyperlipidemia
# Constipation-bowel regimen when the patient can take p.o.
# Dementia
# DVT prophylaxis-subcutaneous heparin
# DNR status
Discussed with patient's son at bedside. Confirmed DNR status
He states that patient has dementia and has been needing more and more help with ADL but mostly able to do her own stuff.
Discussed with nursing at bedside
Total Critical Care Time 40 minutes. I was immediately available to the patient and staff. I personally examined, reviewed labs, diagnostic images/reports, interpretations, treatment plans, discussed patient care with other providers and family ,
entered orders as appropriate and documented the medical record.
Anticipated Discharge: > 48 hours
Subjective/Interval History
-
Date of Service: May 24, 2024
Objective Data
-
Labs:
Laboratory Results
05/24/24
03:38
WBC 18.7 H
Hgb 7.7 L
Hct 24.8 L
Plt Count 104 L
Sodium 143
Potassium 4.2
Chloride 111 H
Carbon Dioxide 20 L
BUN 54 H
Creatinine 1.4 H
Glucose 84
Calcium 8.5
Vital Signs:
Vital Signs
Temp Pulse Resp BP Pulse Ox
98 F 88 15 119/69 93
05/24/24 12:00 05/24/24 14:00 05/24/24 14:00 05/24/24 14:00 05/24/24 13:45
I&O
05/23/24 05/24/24 05/25/24
06:59 06:59 06:59
Intake Total 844.5 / 983.0 844.6 / 844.6
Balance 844.5 / 983.0 844.6 / 844.6
[2024-05-24 16:46] LABS: Lipase > 4000 U/L (23-300)
--- NOTE | 2024-05-24 17:00 | PTCARENOTE ---
Decreased Dopamine gtt to 3. Notified Dr. Figueredo of lipase>4000. IVF rate up to 125. Patient has also had only 150cc of urine all shift. Bladder scanned for 124ml. notified
--- NOTE | 2024-05-24 17:27 | CM ---
brokerage manager reviewed patient's chart and per chart patient was admitted with sepsis, patient is currently npo, aspiration precautions, on 10 liters of oxygen, mitts in place, dementia.
Patient lives with her son in a 2 story home, patient was independent with adl's and used a walker with ambulation, per son patient may benefit from visiting nurses.
PCP: Evi Zheng
Pharmacy: [facility] in [place]
Plan to follow with progress and assist with discharge planning.
[2024-05-24 17:49] LABS: Glucose - Point of Care 84 mg/dl (70-99)
--- NOTE | 2024-05-24 20:15 | PTCARENOTE ---
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 Rectal T 96.6F- mamadou yosvanygger applied. SR HR 70s. B/L IV WNL- dopamine gtt/IVF infusing per work list. purewick in place. POC discussed with pt's son. bed alarm on.
[2024-05-24 23:46] LABS: Glucose - Point of Care 123 mg/dl (70-99)
[2024-05-25] VITALS (25 sets, daily range): BP systolic 95–138; BP diastolic 56–89; PULSE 77–79; BMI 27.0
--- NOTE | 2024-05-25 | PTCARENOTE ---
temp 98F, mamadou italo off, no changes in assessment.
[2024-05-25] MEDS: HEPARIN 5000 UNITS SC ×3 (00:10→15:34)
[2024-05-25] MEDS: NSS 1000 IV (03:00)
--- NOTE | 2024-05-25 05:00 | PTCARENOTE ---
CHG bath, no changes in assessment.
[2024-05-25 05:28] LABS: Glucose - Point of Care 85 mg/dl (70-99)
[2024-05-25] MEDS: NOVOLOG FLEXPEN-LOW RESISTANCE SC ×3 (05:34→18:32)
[2024-05-25 06:23] LABS: ALT (SGPT) 37 U/L (0-35); AST (SGOT) 44 U/L (14-36); Albumin 3.1 g/dl (3.5-5.0); Alkaline Phosphatase 111 U/L (38-126); Blood Urea Nitrogen 57 mg/dl (7-17); Carbon Dioxide 18 mmol/L (22-30); Chloride 116 mmol/L (98-107); Estimated Creatinine Clearance 23 ml/min; Glucose 81 mg/dl (70-99); Lipase 910 U/L (23-300); Magnesium 1.7 mg/dl (1.6-2.3); Phosphorus 4.2 mg/dl (2.5-4.5); Sodium 146 mmol/L (135-145); Total Bilirubin 0.3 mg/dl (0.2-1.3); Total Protein 5.5 g/dl (6.3-8.2); eGFR 29.02
[2024-05-25 06:52] LABS: Hematocrit 23.6 % (37.0-47.0); Hemoglobin 7.3 g/dL (12.0-16.0); Mean Corp Hgb Conc. 30.9 g/dL (33.0-37.0); Mean Corpuscular Hgb 23.3 pg (27.0-31.0); Mean Corpuscular Volume 75.4 fL (81.0-99.0); Platelet Count 105 10^3/uL (130-400); Red Blood Cell Count 3.13 10^6/uL (4.20-5.40); White Blood Cell Count 19.9 10^3/uL (4.8-10.8)
[2024-05-25] MEDS: DESENEX/MITRAZOL/ZEASORB 1 APPLIC TOPICAL ×2 (07:33→21:00)
--- NOTE | 2024-05-25 07:49 | PTCARENOTE ---
Received patient from screen stretcher. patient is awake, eyes open, able to state her name but difficult to understand. She can move extremities but is staring into room/remains confused, drowsy. She is sinus rhythm in 70s and on dopamine gtt at
2mcg/kg/min. She is on 8L nasal cannula, does breathe frequently through her mouth, saturation 96%. occasional weak cough. Mouth care completed. Patient is NPO, incontinent of bowel and bladder. external female purewick in place. IVF infusing
through left AC. Will review orders, bilateral mitts remain on, bed is in lowest position with bed exit alarm on.
--- NOTE | 2024-05-25 08:21 | W.PN.INTV ---
Today's Communication / Plan
Recommendations
Antibiotics per ID
Defer pacemaker implantation decision to cardiology
Maintain normothermia with Luis Angel hugger as needed
IVF to treat mild hyponatremia in the setting of pancreatitis, however use cautiously in the setting of bilateral pleural effusions and hypoxia
Aspiration precautions
Repeat imaging in 4 to 6 weeks to follow her pneumonia resolution
Replete K>4, Mg>2
Continue dopamine drip and wean down and hopefully off as tolerated
Continue telemetry
Continue ICU level of care for this critically ill patient
Assessment
-
Assessment: 88-year-old female with a past medical history of dementia, DM type II, GERD and hypertension who presented with fall. 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 Patient is a poor historian due to advanced
dementia. Patient was also not herself of the last 2 days. The family has denied any loss of consciousness. Initially in the ER she was hypothermic to 90.3 �F via rectal temperature, bradycardic to 54 bpm, breathing at 12 breaths/min, BP 98/64
and saturating 100% on RA. Initial labs showed leukocytosis to 14.5, Hb 8, platelet count 92, creatinine 1.4, AST 37, ALT 46, procalcitonin negative at 0.08, and urinalysis was suspicious for UTI with positive nitrites, +2 leukocyte esterase and
>100 urine WBC. Urine and blood cultures collected. 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 CXR showed tiny right-sided
pleural effusion versus pleural thickening with worsening elevation of the right hemidiaphragm. In the ER she was given IVF with NS at 0.9% x 1L and cefepime. Due to her bradycardia, dopamine drip was started and she was admitted to the ICU.
Latin Dance Instructor services consulted for additional management/recommendations.
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
Impression:
#Bradycardia with third degree heart block requiring dopamine drip
#Hypothermia now resolved
#Acute respiratory failure with hypoxia likely due to sepsis with acute organ dysfunction with RLL pneumonia (likely aspiration)
#Suspected UTI
#Elevated lipase concerning for pancreatitis
#Bilateral pleural effusions
#Leukocytosis with bandemia (9%)
#Mild transaminitis
#Acute anemia
#Acute thrombocytopenia likely due to sepsis
#OLI
#Metabolic acidosis with preserved anion gap likely due to OLI
#Right hemidiaphragm elevation (progressing)
#Abnormal CXR with small right-sided pleural effusion versus pleural thickening
#Fall
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
Plan:
- Bradycardia arrhythmia likely multifactorial due to hypothermia in setting of infection/sepsis from UTI and home toprol-XL use
- Apparently she had been off her metoprolol for several days prior to her ER visit so unclear if this is truly an etiology for current presentation
- Continue to monitor core temperature and maintain normothermia
- We tried to wean her off the dopamine drip on 05/24/2024 but then she developed 4-5-second pauses and cardiology reviewed telemetry showing third-degree heart block
- Continue to hold negative chronotropes
- Cardiology consulted to evaluate for pacemaker - recs appreciated
- Echo checked on 05/24/2024 showing preserved biventricular function with no regional WMA, with mild mitral stenosis, moderate aortic stenosis with peak/mean gradients of 26/18, respectively with an ABRAHAM of 1-1.3 cm�. Also mild�moderate TR with
normal PASP
- Continue with antibiotics, currently on ceftriaxone s/p cefepime
- Follow-up urine culture + blood cultures (NGTD)
- Trend WBC; monitor for fever
- Check a sputum culture if she can produce a decent sample; check urine antigens for Legionella + strep pneumonia
- Try to limit IVF given her bilateral pleural effusions with risk for pulmonary edema
- Maintain SpO2 >90-94% and wean down supplemental O2 as tolerated
- Aspiration precautions
- Will need a walking pulse oximetry prior to discharge
- Maintain MAP>65
- Trend sHCO3 --> if bicarb decreases <16 then start bicarb gtt vs PO bicarb, however monitor fluid intake given risk for volume overload in setting of bradycardia
- Trend LFTs
- Trend sCr and monitor I/O and UOP
- Renally dose all meds/Abx
- Trend sNa now that it is 146 today
- 1/2-NS being started at 75 cc/hr
- Replete electrolytes with K>4, Mg>2
- Maintain euglycemia with goal BG 140-180 with q6hr ISS; avoid hypoglycemia (may need IV dextrose supplementation)
- Trend H/H and transfuse if needed to keep Hb>7g/dL; keep plt>20k, unless there is concern for bleeding then keep plt>50k
- prn nebulized bronchodilators - not currently bronchospastic
- Encouraged incentive spirometer use 10x per hour for at least 4 hrs a day
- PT/OT after off dopamine drip
- PLANNING DIVISION SUPERINTENDENT eval prior to starting diet
- DVT ppx: HSQ
Code status: DNR/DNI
Continue ICU level care for this critically ill patient.
Critical care statement: A total of 37 minutes of critical care time was provided for this patient today. This includes management of unstable vital signs, evaluation of the patient at bedside, reviewing the patient's pertinent medical records
including radiographs, microbiology, laboratory evaluations, and discussion with primary team, consultants, pharmacy, nutrition, physical therapy, case management, charge nurse, critical care nursing, and respiratory therapy.
Data:
CXR 05/24/2024:
New tiny right pleural effusion versus pleural thickening.
Mild cardiomegaly. New.
Mild elevation of the right hemidiaphragm progressed.
CT abdomen/pelvis without contrast 05/24/2024:
Small bilateral pleural effusions.
Moderate right lower lobe and mild left lower lobe consolidation. Concerning for pneumonia on the right and probable atelectasis in the left.
Possible pancreatitis. Clinical and laboratory correlation recommended
Small simple left renal cyst.
Prior cholecystectomy.
Severe atherosclerotic vascular disease.
Moderate fecal material throughout the colon.
Mild diverticulosis.
Subjective Dataa
Subjective Data
Date of Service:
Date of Service: May 25, 2024
Chief Complaint: Latin Dance Instructor Follow Up
Subjective:
Pt seen and evaluated this AM. Complete heart blood seen yesterday on telemetry, currently she remains on dopamine at 2mcg/min. Remains normothermic as this morning and is much more interactive today. Currently, heart rate 75 and saturating 99%
BP 125/72. On 8 L/min and saturating 97%. She is a poor historian and still remains confused although she is awake.
Review of Systems
General: Other (Unable to obtain given patient's acute clinical status/dementia)
Objective Data
Data Reviewed
Vital Signs / I&O / Oxygen:
Vital Signs
Temp Pulse Resp BP Pulse Ox
97.8 F 77 12 133/75 96
05/25/24 05:00 05/25/24 07:00 05/25/24 07:00 05/25/24 07:00 05/25/24 07:48
Intake and Output
05/24/24 05/25/24 05/26/24
06:59 06:59 06:59
Intake Total 844.5 / 983.0 2885.0 / 3015.4 130.4 / 130.4
Output Total 350 / 350
Balance 844.5 / 983.0 2535.0 / 2665.4 130.4 / 130.4
SaO2 96
Nasal Cannula flow liters per 8
minute
Physical Exam
General: Respiratory Distress (negative), Comfortable, Chills (negative) and Sweats (negative)
HEENT: Normocephalic and Anicteric
Cardiovascular: S1-S2, Rub (negative) and Peripheral Edema (+1 lower extremity edema bilaterally)
Respiratory: Wheeze (negative), Crackles (Bibasilar), Rhonchi (negative) and Non-Labored Respirations
GI: Soft, Non Distended, Non Tender and Normal Bowel Sounds
Neurology: Awake, Alert, Tremors (negative) and Other (Confused)
Skin: Warm, Dry, Cyanosis (negative) and Jaundice (negative)
Labs/Micro/Reports
Lab Data
05/25/24 05:16
05/25/24 05:16
Microbiology
05/23/24 21:49 Blood/Venous Blood Culture - Preliminary
No Growth in 24 hours- Final report to follow
05/23/24 21:49 Blood/Venous Blood Culture - Preliminary
No Growth in 24 hours- Final report to follow
[2024-05-25 08:31] LABS: Absolute Neutrophils -Man Diff 17.9 10^3/uL (1.4-6.5); Atypical Lymphocytes 1 %; Band Neutrophils 9 % (0-3); Lymphocytes 5 % (20-51); Monocytes 4 % (2-9); Normal RBC Morphology Yes; Nucleated Red Blood Cells 3 (-); Platelets Checked Yes; Segmented Neutrophils 81 % (42-75); Total Cells Counted 100
--- NOTE | 2024-05-25 09:02 | W.PN.ID1 ---
Addendum entered and electronically signed by Ana Clifton MD 05/25/24 16:03:
Notified by RN of aspiration on swallow evaluation. Discussed with hospitalist Dr Mcclain and with her agreement spoke with son Ba, explained that aspiration tends to be recurrent, is likely the cause of her pneumonia, and Im concerned that this
could become a cycle of aspiration and progressive pneumonias ultimately leading to . If Ms Woods was my family member, I wouldnt want to put in a pacemaker or a feeding tube and I would consider hospice. Of course we will respect their
wishes whatever they may be, but I wanted him to be aware of this new information this afternoon. He shares that his is an RN and these updates are not surprising. He has seen signs of possible aspiration at home (talking with mouth full).
They have also been noticing her slow down recently. He also comments that prior to this event she has generally been health - and this is her first hospitalization in 30 years which makes these decisions harder. I offered to discuss with other
family members and he says he would prefer to speak with Claude himself. Expressed that we will respect families wishes whatever they may be and thanked him for discussing with me.
Original Note:
Date of Service
Date of Service: May 25, 2024
Today's Communication
c/w ceftriaxone
sputum culture if able to obtain
Assessment / Plan
Septic Shock
Probable UTI
Possible Aspiration Pneumonitis vs pneumonia
OLI on CKD
Dementia
Bradycardia - resolved
Pancreatitis
- urine culture in progress, UA with 100K wbc/hpf
- blood cultures x2 in progress
- sputum culture if able to obtain
- c/w ceftriaxone
- follow cbc, renal function, pressor requirements
Patient remains critically ill on pressors with interval improvement
Chief Complaint
-: UTI and Other (septic shock)
Subjective / Review of Systems
ongoing hypothermia, now in the 96 range
remains on dopamine level declining
TTE: no lesions, normal EF
Alert today
reports some cough - cannot say if productive
no suprapubic tenderness
Vital Signs / Physical Exam
Vital Signs
Vital Signs
Temp Pulse Resp BP Pulse Ox
97.8 F 77 12 133/75 96
05/25/24 05:00 05/25/24 07:00 05/25/24 07:00 05/25/24 07:00 05/25/24 07:48
Physical Exam
Constitutional: No Acute Distress and Chronically Ill
Cardiovascular: Regular Rate and S1/S2; Negative Murmur or Rub
Pulmonary: Clear and Symmetric; Negative Wheezes or Rales
Gastrointestinal: Soft, Non Tender, Non Distended and Normal Bowel Sounds
Genito-Urinary: Negative Suprapubic Tenderness
Skin: Warm and Dry; Negative Rash or Jaundice
Objective Data
Lab Data
Lab Results
05/25/24 05:16
05/25/24 05:16
PT 14.1 Sec (11.4-14.6) 05/23/24 20:59
INR 1.06 05/23/24 20:59
APTT 35.5 Sec (23.4-35.0) H 05/23/24 20:59
Estimated Creat Clear 23 ml/min 05/25/24 05:16
Lactic Acid Cancelled 05/24/24 01:45
Total Bilirubin 0.3 mg/dl (0.2-1.3) 05/25/24 05:16
AST 44 U/L (14-36) H 05/25/24 05:16
ALT 37 U/L (0-35) H 05/25/24 05:16
Alkaline Phosphatase 111 U/L (38-126) 05/25/24 05:16
Most recent labs reviewed.
note increasing Cr from 1.4 to 1.7
lipase improved from >[address] Scan: Image Reviewed and Report Reviewed (CT: moderate RLL and mild LLL consolidation, possible pancreatitis, constipation)
Micro Results:
05/23/24 21:49 Blood Culture - Preliminary
Blood/Venous No Growth in 24 hours- Final report to follow
05/23/24 21:49 Blood Culture - Preliminary
Blood/Venous No Growth in 24 hours- Final report to follow
05/23/24 20:59 Urine Culture - Pending
Urine
--- NOTE | 2024-05-25 10:14 | PN.CDI ---
CDI
- -
CDI:
Physician Documentation Request
Admit Date: 05/23/24 23:42
Dear Doctor Sarahi,
Please review the following and provide your response in the progress notes.
Clinical Indicators:
Pt admitted with Sepsis, aspiration pneumonia, and OLI.
05/23 ER note: ' 88-year-old female presenting for evaluation of altered mental status and trouble with weightbearing. Per EMS, patient had a fall 2 days ago. Since then, she has had trouble weightbearing and decreased p.o. intake. Family states
she has a history of dementia but has noted that she has been more confused lately.'
05/24 RN Note: ' ...pulling off mamadou hugger, wanting to climb oob, bed alarm on,bilat mitts applied.'
05/24 RN Note: '...patient is lethargic/drowsy arousable, confused...'
Based on the above, could you clarify in the Progress Notes and Discharge Summary which, if any of the following, is the most likely etiology of the confusion/altered mental status.
Encephalopathy - indicate type, such as metabolic, toxic, septic, due to a specific condition such as UTI, CVA, hyponatremia etc.
Baseline Dementia - indicate type, such as Alzheimer's,, and any associated behavioral disturbances (aggressive, combative or violent behavior) if present
Other
Use of terms such as suspected, likely, concern for, or probable (associated with a specific diagnosis that is being evaluated, monitored, or treated as if it exists) are acceptable and can be coded in the inpatient setting, when documented at the
time of discharge.
Thank you,
Jennifer Andrew RN, BSN
CDI Specialist
Singer Text
Please use your independent medical judgment in providing your response.
[2024-05-25] MEDS: DEXTROSE 50% SYRINGE 12.5 GRAMS IV ×2 (11:45→16:06)
[2024-05-25 11:56] LABS: Glucose - Point of Care 49 mg/dl (70-99)
--- NOTE | 2024-05-25 12:04 | W.PN.CD ---
Today's Communication / Plan
-
wean dopamine and trend tele
Impression / Plan
-
IMPRESSION/PLAN: 88F with SVT, hypertension, hyperlipidemia, type 2 diabetes mellitus, cardioembolic stroke, aortic stenosis, and dementia who presented after a fall. She was confused, having difficulty weightbearing, hypothermic, and was found to
be bradycardic with sinus pauses.
Primary butt welder: Dr. Dennis Askew
Septic shock
-Arrived hypothermic with a rectal temp of 90.3 �F
-Cultures are pending
-suspected UTI: on Abx and dopamine
Bradycardia
-home Toprol XL 25mg daily stopped
-30 sec asystole in ED; then with periods of complete heart block and 2:1 in ICU
-last complete heart block was 05/24 at approx 1130am
-treating reversible causes such as severe hypothermia and sepsis
-discussed with patient and son Bill: if she needs PPM before d/c, they would be agreeable
-wean dopamine
Valvular heart disease
-echo 05/24 with EF 50-55%, mild MS, moderate , mild/mod TR
-monitor volume status
OLI, per primary
Pancytopenia, per primary
Hypertension, agents on hold
PSVT, follow telemetry; Toprol XL stopped (see above)
Prior CVA, no atrial fibrillation on outpatient cardiac monitoring, on daily aspirin at home
NIDDM, on oral agents in the outpatient setting, per primary
Alzheimer's dementia, on memantine
CCT 35 min
Physical Exam
Vital Signs/Labs
Vital Signs
Temp Pulse Resp BP Pulse Ox
96.6 F L 78 11 130/76 97
05/25/24 12:03 05/25/24 11:00 05/25/24 11:00 05/25/24 11:00 05/25/24 09:00
05/24/24 05/25/24 05/26/24
06:59 06:59 06:59
Actual Weight 67.8 kg 71.3 kg
05/25/24 05:16
05/25/24 05:16
PT 14.1 Sec (11.4-14.6) 05/23/24 20:59
INR 1.06 05/23/24 20:59
APTT 35.5 Sec (23.4-35.0) H 05/23/24 20:59
Magnesium 1.7 mg/dl (1.6-2.3) 05/25/24 05:16
Triglycerides 86 mg/dl (10-149) 05/24/24 03:38
LDL Cholesterol, Calc 22 mg/dl 05/24/24 03:38
VLDL Cholesterol, Calc 17 mg/dl (0-30) 05/24/24 03:38
HDL Cholesterol 92 mg/dl 05/24/24 03:38
TSH 2.10 uIU/ml (0.47-4.68) 05/24/24 03:38
05/23/24
20:59
Mdo-M-Uysajggqmgh Pept 491
LAB Results
05/23/24 05/24/24
20:59 03:38
Troponin I 0.018 0.027 D
Physical Exam
Constitutional: No acute distress
EENT: Moist mucous membranes
Cardiovascular: Rhythm & rate is regular, JVD pressure is normal, Pedal edema present and Systolic murmur present
Respiratory: Respiratory effort normal and Lungs clear to auscul.
Neuro/Psych: Other (lethargic)
Data Reviewed
-
Date of Service: May 25, 2024
EKG: Other (Tele: sinus, brief 2:1, last complete heart block 05/24 around 1130am)
Echo: Report Reviewed by me
Labs: Labs Reviewed by me
[2024-05-25] MEDS: 0.45%NACL 1000 IV (12:11)
[2024-05-25 12:17] LABS: Glucose - Point of Care 76 mg/dl (70-99)
--- NOTE | 2024-05-25 12:26 | PTCARENOTE ---
No change in assessment. Blood sugar 49, hypoglycemia protocol followed. Also notified Dr. Mcclain of patients low urine output. Bladder scan also low, may be ascites. Will continue to bladder scan as needed. 1/2 NSS started as patient
continues to be NPO, awaiting speech
--- NOTE | 2024-05-25 13:05 | W.PN.HOSP.TC ---
Today's Communication/Plan
-
Continue antibiotics
Aspiration precautions
IV fluids with OLI, pancreatitis, n.p.o. status-will do a lower rate
Assessment / Plan
Assessment / Plan
88-year-old female presented with a fall about 2 days ago. Did not lose consciousness. She also has been confused no sick contacts.
Chest x-ray-new tiny right pleural effusion, mild cardiomegaly, mild elevation of right hemidiaphragm
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 Severe multilevel lower lumbar discogenic DJD. Severe calcific atherosclerotic plaques in femoral arteries. Diffuse bone demineralization
Echo 1 --LVEF 50 to 55%. Mild mitral stenosis. Moderate AAS. Mild to moderate TR
CT scan of the abdomen and pelvis-small bilateral pleural effusions. Moderate right lower lobe and mild left lower lobe consolidation. Possible pancreatitis. Simple cyst in the left kidney. Prior cholecystectomy. Severe atherosclerotic vascular
disease. Moderate fecal material throughout the colon. Mild diverticulosis.
Patient is arousable
Cardiovascular system S1-S2 appreciated, systolic murmur at aortic area
Chest bilateral coarse breath sounds
Abdomen soft and nontender
Mild bilateral pedal edema noted
Confused, knows her name and that she is at [facility] [place].
# Sepsis-likely secondary to urinary source
Check blood cultures and urine cultures
Cefepime to be continued
CT scan without any obstruction
# TME due to above- resolving
# Aspiration pneumonia-bilateral pneumonia on CT
# Pancreatitis on CT. History not reliable. Lipase over 4000-coming down-we will do lower rate of IV fluids
# Acute kidney injury-hold losartan hydrochlorothiazide. Continue IV fluids.
# Bradycardia with sinus pauses and heart rate in 30s
Hold any AV tunde blocking agents
Cardiology consulted
Echo as above
Dopamine drip started-continue
ZOLL pads on
# Diabetes-meds need to be reconciled. Accu-Cheks and sliding scale coverage
# Elevated LFTs-likely secondary to sepsis-follow
# Anemia--Iron deficiency noted. P.o. iron when able to take
# Thrombocytopenia
# Mild to moderate aortic stenosis
# Severe multilobar lower lumbar discogenic DJD/severe arthritis
# Hypertension
# Diverticulosis
# GERD-continue PPI
# Atherosclerosis/hyperlipidemia
# Constipation-bowel regimen when the patient can take p.o.
# Dementia
# DVT prophylaxis-subcutaneous heparin
# DNR status
Discussed with patient's son Claude yesterday
He states that patient has dementia and has been needing more and more help with ADL but mostly able to do her own stuff.
Discussed with nursing at bedside
Spoke to patient's son Ba today.
Discussed about patient's multiple medical problems including aspiration pneumonia, UTI, pancreatitis, anemia, abnormal LFTs, acute kidney injury, aspiration,. Family would like to proceed with pacemaker if she needs it. But they are aware that
she is extremely sick with multiple medical problems. They are aware about her dementia getting worse.
Total Critical Care Time 38 minutes. I was immediately available to the patient and staff. I personally examined, reviewed labs, diagnostic images/reports, interpretations, treatment plans, discussed patient care with other providers and family ,
entered orders as appropriate and documented the medical record.
Anticipated Discharge: > 48 hours
Subjective/Interval History
-
Date of Service: May 25, 2024
Objective Data
-
Labs:
Laboratory Results
05/25/24
05:16
WBC 19.9 H
Hgb 7.3 L
Hct 23.6 L
Plt Count 105 L
Sodium 146 H
Potassium 4.0
Chloride 116 H
Carbon Dioxide 18 L
BUN 57 H
Creatinine 1.7 H
Glucose 81
Calcium 8.0 L
Total Bilirubin 0.3
AST 44 H
ALT 37 H
Alkaline Phosphatase 111
Vital Signs:
Vital Signs
Temp Pulse Resp BP Pulse Ox
96.6 F L 78 11 130/76 97
05/25/24 12:03 05/25/24 11:00 05/25/24 11:00 05/25/24 11:00 05/25/24 09:00
I&O
05/24/24 05/25/24 05/26/24
06:59 06:59 06:59
Intake Total 844.5 / 983.0 2885.0 / 3015.4 604.7 / 604.7
Output Total 350 / 350
Balance 844.5 / 983.0 2535.0 / 2665.4 604.7 / 604.7
[2024-05-25] MEDS: STERILE WATER FOR INJECTION 20 ML IV (13:29)
[2024-05-25] MEDS: ROCEPHIN 2000 MG IV (13:29)
--- NOTE | 2024-05-25 13:50 | CM ---
CM following re: discharge planning.
Reviewed pt's chart, met with pt and pt's grandson Alexander at bedside.
Per grandson patient lives with her son in a 2 story home, patient was independent with ADL and used a walker with ambulation.
PT and OT will evaluate the pt when clinically appropriate to determine a level of care at discharge.
CM will follow with discharge plan updates as hospitalization progresses.
[2024-05-25 14:07] LABS: Glucose - Point of Care 73 mg/dl (70-99)
--- NOTE | 2024-05-25 15:05 | PTOTSP ---
Speech Language Pathology
Pt seen for clinical bedside swallow evaluation. P.O. trials of ice chips, thin water via straw, and puree provided. With 1/2 tsps of puree, gag/cough noted. With both trials of puree, approximately 1/4 bolus remained in oral cavity with need for
suctioning by CHANNEL MAN. With thin water, audible swallow noted, but no overt coughing. Wet voice noted at rest and with P.O. trials.
Recommend:
(1) NPO
(2) Will consider VSE based on progress 05/26
(3) Oral care 4x/day with suctioning as needed
(4) Non-oral meds
(5) Allow sips of water post oral care given supervision when alert per Aspiration Risk Hydration Protocol (ARHP)
(6) CHANNEL MAN to continue to follow
--- NOTE | 2024-05-25 15:33 | PTCARENOTE ---
Patient seen by speech, will remain NPO with aspiration precautions
[2024-05-25 16:10] LABS: Glucose - Point of Care 58 mg/dl (70-99)
[2024-05-25] MEDS: D5W 1000 IV (16:37)
[2024-05-25 16:50] LABS: Glucose - Point of Care 129 mg/dl (70-99)
--- NOTE | 2024-05-25 17:00 | PTCARENOTE ---
Spoke with patient's daughter Jenni who states she is patient's POA. Jenni Roach phone number [phone]. Family did confirm she is POA and updated daughter on plan of care. asked her to bring in paperwork for POA and to speak with her brother
Ba.
--- NOTE | 2024-05-25 21:00 | PTCARENOTE ---
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 B/L IV WNL- IVF infusing per work list. purewick in place. mouth care done. Temp 95.5F- Luis Angel Davila applied. dtr at bedside, POC discussed.
[2024-05-25 23:12] LABS: Glucose - Point of Care 148 mg/dl (70-99)
[2024-05-26] VITALS (15 sets, daily range): BP systolic 134–147; BP diastolic 61–84; BMI 27.2
[2024-05-26 00:10] LABS: Glucose - Point of Care 189 mg/dl (70-99)
--- NOTE | 2024-05-26 04:00 | PTCARENOTE ---
no changes in pt assessment.
[2024-05-26] MEDS: D5W 1000 IV (04:11)
[2024-05-26 04:19] LABS: % Basophils 0.1 % (0-2); % Immature Granulocytes 0.8 % (0-0.5); % Lymphocytes 3.4 % (20.5-51.1); % Monocytes 6.2 % (1.7-9.3); % Neutrophils 89.5 % (42.2-75.2); Absolute Immature Granulocytes 0.1 10^3/uL (0-0.05); Absolute Lymphocytes 0.5 10^3/uL (1.2-3.4); Absolute Neutrophils 13.8 10^3/uL (1.4-6.5); Hematocrit 22.6 % (37.0-47.0); Hemoglobin 6.9 g/dL (12.0-16.0); Mean Corp Hgb Conc. 30.5 g/dL (33.0-37.0); Mean Corpuscular Volume 75.3 fL (81.0-99.0); Nucleated Red Blood Cells % 0.6 %; Platelet Count 111 10^3/uL (130-400); Red Cell Dist. Width 15.9 % (11.5-14.5); White Blood Cell Count 15.4 10^3/uL (4.8-10.8)
[2024-05-26 04:36] LABS: ALT (SGPT) 33 U/L (0-35); AST (SGOT) 39 U/L (14-36); Albumin 2.9 g/dl (3.5-5.0); Alkaline Phosphatase 106 U/L (38-126); Blood Urea Nitrogen 59 mg/dl (7-17); Calcium 8.2 mg/dl (8.4-10.2); Carbon Dioxide 18 mmol/L (22-30); Chloride 112 mmol/L (98-107); Estimated Creatinine Clearance 26 ml/min; Glucose 167 mg/dl (70-99); Lipase 447 U/L (23-300); Potassium 3.2 mmol/L (3.5-5.1); Sodium 144 mmol/L (135-145); Total Bilirubin 0.3 mg/dl (0.2-1.3); Total Protein 5.2 g/dl (6.3-8.2); eGFR 33.73
--- NOTE | 2024-05-26 05:43 | W.PN.UPDATE ---
Update Note
Progress Note Update
Hgb dropped to 6.9, clinically stable, left message with son Claude for consent. Waiting on reply.
[2024-05-26] MEDS: NOVOLOG FLEXPEN-LOW RESISTANCE SC ×3 (05:44→18:11)
[2024-05-26] MEDS: KCL 270 MEQ IV (05:47)
--- NOTE | 2024-05-26 08:20 | W.PN.INTV ---
Today's Communication / Plan
Recommendations
Antibiotics per ID
Defer pacemaker implantation decision to cardiology -currently no indication for pacemaker
Maintain normothermia
IVF to treat mild hyponatremia in the setting of pancreatitis, however use cautiously in the setting of bilateral pleural effusions and hypoxia - trend lipase
Aspiration precautions
Repeat chest imaging in 4 to 6 weeks to follow her pneumonia resolution
Replete K>4, Mg>2
Continue telemetry
Trend sNa
Patient is stable for downgrade out of ICU to telemetry. No additional recommendations at this time. Hot Metal Mixer Operator/Pulmonary service will now sign off. Please reconsult if there are any additional questions/concerns, or if patient's respiratory
status deteriorates.
Assessment
-
Assessment: 88-year-old female with a past medical history of dementia, DM type II, GERD and hypertension who presented with fall. 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 Patient is a poor historian due to advanced
dementia. Patient was also not herself of the last 2 days. The family has denied any loss of consciousness. Initially in the ER she was hypothermic to 90.3 �F via rectal temperature, bradycardic to 54 bpm, breathing at 12 breaths/min, BP 98/64
and saturating 100% on RA. Initial labs showed leukocytosis to 14.5, Hb 8, platelet count 92, creatinine 1.4, AST 37, ALT 46, procalcitonin negative at 0.08, and urinalysis was suspicious for UTI with positive nitrites, +2 leukocyte esterase and
>100 urine WBC. Urine and blood cultures collected. 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 CXR showed tiny right-sided
pleural effusion versus pleural thickening with worsening elevation of the right hemidiaphragm. In the ER she was given IVF with NS at 0.9% x 1L and cefepime. Due to her bradycardia, dopamine drip was started and she was admitted to the ICU.
Hot Metal Mixer Operator services consulted for additional management/recommendations.
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
Impression:
#Bradycardia with third degree heart block requiring dopamine drip - now off dopamine drip since 05/25/2024
#Hypothermia - resolved
#Acute respiratory failure with hypoxia likely due to sepsis (without shock) with acute organ dysfunction with RLL pneumonia (likely aspiration)
#Suspected UTI
#Elevated lipase concerning for pancreatitis (lipase improving)
#Bilateral pleural effusions
#Leukocytosis with bandemia (9% from 05/25/2024)
#Mild transaminitis
#Acute anemia, likely dilutional at this point
#Acute thrombocytopenia likely due to sepsis
#OLI
#Metabolic acidosis with preserved anion gap likely due to OLI
#Right hemidiaphragm elevation (progressing)
#Abnormal CXR with small right-sided pleural effusion versus pleural thickening
#Fall
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
Plan:
- Bradycardia arrhythmia likely multifactorial due to hypothermia in setting of infection/sepsis from UTI and home toprol-XL use
- Apparently she had been off her metoprolol for several days prior to her ER visit so unclear if this was truly an etiology for her bradycardia
- Maintain normothermia
- We tried to wean her off the dopamine drip on 05/24/2024 but then she developed 4-5-second pauses and cardiology reviewed telemetry showing third-degree heart block --> she is now off dopamine as of 05/25 and no longer having long pauses
- Continue to hold negative chronotropes
- Cardiology consulted to evaluate for pacemaker - recs appreciated
- Echo checked on 05/24/2024 showing preserved biventricular function with no regional WMA, with mild mitral stenosis, moderate aortic stenosis with peak/mean gradients of 26/18, respectively with an ABRAHAM of 1-1.3 cm�. Also mild�moderate TR with
normal PASP
- Continue with antibiotics, currently on ceftriaxone s/p cefepime
- Follow-up urine culture + blood cultures (NGTD)
- Trend WBC; monitor for fever
- Check a sputum culture if she can produce a decent sample; urine antigens for Legionella + strep pneumonia both negative
- Try to limit IVF given her bilateral pleural effusions with risk for pulmonary edema
- Maintain SpO2 >90-94% and wean down supplemental O2 as tolerated
- Aspiration precautions
- Will need a walking pulse oximetry prior to discharge
- Maintain MAP>65
- Trend sHCO3 --> if bicarb decreases <16 then start bicarb gtt vs PO bicarb, however monitor fluid intake given risk for volume overload in setting of bradycardia
- Bicarb level today is 18, and is stable. Currently no need for bicarb drip
- Trend LFTs
- Trend sCr and monitor I/O and UOP
- Renally dose all meds/Abx
- Trend sNa - it was 146 yesterday and 1/2-NS was started at 75 cc/hr --> she is now on D5W --> this can be stopped today
- Replete electrolytes with K>4, Mg>2
- Maintain euglycemia with goal BG 140-180 with q6hr ISS; avoid hypoglycemia (may need IV dextrose supplementation)
- Trend H/H and transfuse if needed to keep Hb>7g/dL; keep plt>20k, unless there is concern for bleeding then keep plt>50k --> she is getting 1 U PRBC this AM, follow up s/p TRX CBC (no obvious bleeding seen clinically)
- prn nebulized bronchodilators - not currently bronchospastic
- Encouraged incentive spirometer use 10x per hour for at least 4 hrs a day
- PT/OT
- [employer] eval prior to starting diet - they saw her today (05/26/2024) and recommended her to be NPO with medications via nonoral means and continue oral care 4 times a day with suctioning as needed
- DVT ppx: HSQ
Code status: DNR/DNI
Patient is stable for downgrade out of ICU to telemetry. No additional recommendations at this time. Hot Metal Mixer Operator/Pulmonary service will now sign off. Thank you for allowing us to be involved in the care of this patient. Please reconsult if there
are any additional questions/concerns, or if patient's respiratory status deteriorates.
Data:
CXR 05/24/2024:
New tiny right pleural effusion versus pleural thickening.
Mild cardiomegaly. New.
Mild elevation of the right hemidiaphragm progressed.
CT abdomen/pelvis without contrast 05/24/2024:
Small bilateral pleural effusions.
Moderate right lower lobe and mild left lower lobe consolidation. Concerning for pneumonia on the right and probable atelectasis in the left.
Possible pancreatitis. Clinical and laboratory correlation recommended
Small simple left renal cyst.
Prior cholecystectomy.
Severe atherosclerotic vascular disease.
Moderate fecal material throughout the colon.
Mild diverticulosis.
Total time spent today was 56 minutes for this encounter. Time includes reviewing laboratory test/imaging results, reviewing pertinent medical records, obtaining and reviewing medical history, performing an appropriate exam, ordering medications,
tests and procedures. Time also includes documentation of this encounter, coordinating patient care and communicating with other healthcare professionals. Total time does not include separately billed tests performed on this date of service.
Subjective Dataa
Subjective Data
Date of Service:
Date of Service: May 26, 2024
Chief Complaint: Hot Metal Mixer Operator Follow Up
Subjective:
Patient seen evaluated today at bedside. Off dopamine since yesterday. On 5L/min. SpO2 98%, HR 74, 124/70. She says she wants to go home. She is in no acute distress.
Review of Systems
General: Other (Unable to obtain due to patient's clinical status/confusion)
Objective Data
Data Reviewed
Vital Signs / I&O / Oxygen:
Vital Signs
Temp Pulse Resp BP Pulse Ox
96.7 F L 78 14 136/84 99
05/26/24 07:15 05/26/24 08:00 05/26/24 08:00 05/26/24 08:00 05/26/24 08:00
Intake and Output
05/25/24 05/26/24 05/27/24
06:59 06:59 06:59
Intake Total 2885.0 / 3015.4 1962.5 / 2037.5 150 / 150
Output Total 350 / 350 600 / 600
Balance 2535.0 / 2665.4 1362.5 / 1437.5 150 / 150
SaO2 99
Nasal Cannula flow liters per 8
minute
Physical Exam
General: Respiratory Distress (negative), Comfortable, Chills (negative) and Sweats (negative)
HEENT: Normocephalic and Anicteric
Cardiovascular: S1-S2, Rub (negative) and Peripheral Edema (Trace lower extremity edema bilaterally)
Respiratory: Wheeze (negative), Crackles (Bibasilar), Rhonchi (negative) and Non-Labored Respirations
GI: Soft, Non Distended, Non Tender and Normal Bowel Sounds
Neurology: Awake, Alert, Tremors (negative) and Other (Confused)
Skin: Warm, Dry, Cyanosis (negative) and Jaundice (negative)
Labs/Micro/Reports
Lab Data
05/26/24 03:44
05/26/24 03:44
Microbiology
05/26/24 03:44 Urine Legionella Urinary Antigen - Final
Negative for Legionella pneumophila Serogroup 1 antigen.
A negative result does not rule out the possiblity of
Legionella infection due to other serogroups or species of
Legionella. Clinical correlation is recommended.
05/26/24 03:44 Urine Streptococcus pneumoniae Antigen (M - Final
Negative for Streptococcus pneumoniae antigen.
A negative result does not exclude infection with
Streptococcus pneumoniae. Clinical correlation is
recommended.
05/23/24 21:49 Blood/Venous Blood Culture - Preliminary
No Growth in 48 hours- Final report to follow
05/23/24 21:49 Blood/Venous Blood Culture - Preliminary
No Growth in 48 hours- Final report to follow
05/23/24 20:59 Urine Urine Culture - Final
[2024-05-26] MEDS: HEPARIN 5000 UNITS SC ×2 (08:48)
[2024-05-26] MEDS: DESENEX/MITRAZOL/ZEASORB 1 APPLIC TOPICAL ×2 (08:49→19:48)
--- NOTE | 2024-05-26 09:19 | W.PN.ID1 ---
Date of Service
Date of Service: May 26, 2024
Today's Communication
- c/w ceftriaxone
Jenni, daughter, reportedly TOMMY - was asked to bring in paper work and discuss with her brother mer last night by nursing staff
Assessment / Plan
Septic Shock
Probable Aspiration Pneumonia
OLI on CKD
Dementia
Bradycardia - resolved
Pancreatitis - resolving, likely due to previous hypothermia/hypotension
- overall favor aspiration pneumonia, suspect aspiration may have been going on for some time
- sputum culture if able to obtain
- urine culture mixed ambar, probable contamination
- blood cultures x2 in progress
- c/w ceftriaxone
- follow cbc, renal function
Jenni, daughter, reportedly TOMMY - was asked to bring in paper work and discuss with her brother mer last night by nursing staff
Chief Complaint
-: UTI and Other (septic shock)
Subjective / Review of Systems
intermittent hypothermia ongoing
bp stable off of dopamine
Jenni, daughter, reportedly TOMMY - was asked to bring in paper work and discuss with her brother mer last night
asking to go home, take off heating blanket and says she doesnt have children- confused
Vital Signs / Physical Exam
Vital Signs
Vital Signs
Temp Pulse Resp BP Pulse Ox
96.7 F L 78 14 136/84 99
05/26/24 07:15 05/26/24 08:00 05/26/24 08:00 05/26/24 08:00 05/26/24 08:00
Physical Exam
Constitutional: Acutely Ill and Chronically Ill
Cardiovascular: Regular Rate and S1/S2; Negative Murmur or Rub
Pulmonary: Clear and Symmetric; Negative Wheezes or Rales
Gastrointestinal: Soft, Non Tender, Non Distended and Normal Bowel Sounds
Skin: Warm and Dry; Negative Rash or Jaundice
Neurological: Awake
Psychological: Confused
Objective Data
Lab Data
Lab Results
05/26/24 03:44
05/26/24 03:44
PT 14.1 Sec (11.4-14.6) 05/23/24 20:59
INR 1.06 05/23/24 20:59
APTT 35.5 Sec (23.4-35.0) H 05/23/24 20:59
Estimated Creat Clear 26 ml/min 05/26/24 03:44
Lactic Acid Cancelled 05/24/24 01:45
Total Bilirubin 0.3 mg/dl (0.2-1.3) 05/26/24 03:44
AST 39 U/L (14-36) H 05/26/24 03:44
ALT 33 U/L (0-35) 05/26/24 03:44
Alkaline Phosphatase 106 U/L (38-126) 05/26/24 03:44
Most recent labs reviewed.
Micro Results:
05/26/24 03:44 Legionella Urinary Antigen - Final
Urine Negative for Legionella pneumophila Serogroup 1 antigen.
A negative result does not rule out the possiblity of
Legionella infection due to other serogroups or species of
Legionella. Clinical correlation is recommended.
Streptococcus pneumoniae Antigen (M - Final
Negative for Streptococcus pneumoniae antigen.
A negative result does not exclude infection with
Streptococcus pneumoniae. Clinical correlation is
recommended.
05/23/24 21:49 Blood Culture - Preliminary
Blood/Venous No Growth in 48 hours- Final report to follow
05/23/24 21:49 Blood Culture - Preliminary
Blood/Venous No Growth in 48 hours- Final report to follow
05/23/24 20:59 Urine Culture - Final
Urine
--- NOTE | 2024-05-26 09:40 | PTCARENOTE ---
Assumed care of pt from mold shifter RN. Pt oriented only to self. NSR on emergency response officer, HRs 70s-80s. SpO2 99% on 8L midflow. IVF infusing per order. Rectal probe temp 96.5, mamadou hugger applied. Pt remains in b/l soft wrist restraints and b/l hand
mitts for safety at this time. Seen by Cardiology at bedside. Per family independence case manager will hold off on PPM placement today. Also seen by Speech at bedside. Per speech pathologist continue NPO. Pt resting in bed. Assessment documented.
[2024-05-26 10:35] LABS: Magnesium 1.8 mg/dl (1.6-2.3)
--- NOTE | 2024-05-26 10:57 | W.PN.CD ---
Today's Communication / Plan
-
dopamine off
trend tele
Impression / Plan
-
IMPRESSION/PLAN: 88F with SVT, hypertension, hyperlipidemia, type 2 diabetes mellitus, cardioembolic stroke, aortic stenosis, and dementia who presented after a fall. She was confused, having difficulty weightbearing, hypothermic, and was found to
be bradycardic with sinus pauses.
Primary calender worker helper: Dr. Dennis Askew
Septic shock
-Arrived hypothermic with a rectal temp of 90.3 �F
-Cultures are negative so far
-thought to be aspiration PNA
Bradycardia
-home Toprol XL 25mg daily stopped
-30 sec asystole in ED; then with periods of complete heart block and 2:1 in ICU
-last complete heart block was 05/24 at approx 1130am
-treating reversible causes such as severe hypothermia and sepsis
-discussed with patient and son Bill: if she needs PPM before d/c, they would be agreeable
-dopamine off
Valvular heart disease
-echo 05/24 with EF 50-55%, mild MS, moderate , mild/mod TR
-monitor volume status
OLI, per primary
Pancytopenia, per primary
Hypertension, agents on hold
PSVT, follow telemetry; Toprol XL stopped (see above)
Prior CVA, no atrial fibrillation on outpatient cardiac monitoring, on daily aspirin at home
NIDDM, on oral agents in the outpatient setting, per primary
Alzheimer's dementia, on memantine
CCT 32 min
Physical Exam
Vital Signs/Labs
Vital Signs
Temp Pulse Resp BP Pulse Ox
96.5 F L 78 14 136/84 98
05/26/24 09:37 05/26/24 08:00 05/26/24 08:00 05/26/24 08:00 05/26/24 09:49
05/25/24 05/26/24 05/27/24
06:59 06:59 06:59
Actual Weight 71.3 kg 71.7 kg
05/26/24 03:44
05/26/24 03:44
PT 14.1 Sec (11.4-14.6) 05/23/24 20:59
INR 1.06 05/23/24 20:59
APTT 35.5 Sec (23.4-35.0) H 05/23/24 20:59
Magnesium 1.8 mg/dl (1.6-2.3) 05/26/24 03:44
Triglycerides 86 mg/dl (10-149) 05/24/24 03:38
LDL Cholesterol, Calc 22 mg/dl 05/24/24 03:38
VLDL Cholesterol, Calc 17 mg/dl (0-30) 05/24/24 03:38
HDL Cholesterol 92 mg/dl 05/24/24 03:38
TSH 2.10 uIU/ml (0.47-4.68) 05/24/24 03:38
05/23/24
20:59
Sis-W-Ntuiqlhmgzt Pept 491
LAB Results
05/23/24 05/24/24
20:59 03:38
Troponin I 0.018 0.027 D
Physical Exam
Constitutional: No acute distress
EENT: Moist mucous membranes
Cardiovascular: Rhythm & rate is regular, Pedal edema is absent, JVD pressure is normal and Systolic murmur absent
Respiratory: Respiratory effort normal and Lungs clear to auscul.
Neuro/Psych: Alert
Data Reviewed
-
Date of Service: May 26, 2024
EKG: Other (Tele: sinus, PVC's, no heart block overnight)
Labs: Labs Reviewed by me
Critical Care Time (in minutes): 32
[2024-05-26 11:35] LABS: COVID-19 Antigen Negative (Negative)
[2024-05-26 12:32] LABS: Glucose - Point of Care 213 mg/dl (70-99)
[2024-05-26] MEDS: NOVOLOG FLEXPEN-LOW RESISTANCE 2 UNITS SC (12:48)
--- NOTE | 2024-05-26 13:15 | PTCARENOTE ---
Consent for blood received by rustam Cosme over the phone. 1 unit PRBCs infusing. Assessment unchanged.
[2024-05-26] MEDS: STERILE WATER FOR INJECTION 20 ML IV (14:13)
[2024-05-26] MEDS: ROCEPHIN 2000 MG IV (14:14)
--- NOTE | 2024-05-26 14:59 | W.PN.HOSP.TC ---
Today's Communication/Plan
-
see note
Assessment / Plan
Assessment / Plan
Chest x-ray-new tiny right pleural effusion, mild cardiomegaly, mild elevation of right hemidiaphragm
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 Severe multilevel lower lumbar discogenic DJD. Severe calcific atherosclerotic plaques in femoral arteries. Diffuse bone demineralization
Echo 1 22-25-LVEF 50 to 55%. Mild mitral stenosis. Moderate AAS. Mild to moderate TR
CT scan of the abdomen and pelvis-small bilateral pleural effusions. Moderate right lower lobe and mild left lower lobe consolidation. Possible pancreatitis. Simple cyst in the left kidney. Prior cholecystectomy. Severe atherosclerotic vascular
disease. Moderate fecal material throughout the colon. Mild diverticulosis.

1. Sepsis - POA
Presumed urinary vs pulm source
-CT abdomen pelvis showing small bilateral effusion and right lower lobe infiltrate
-UA showing pyuria bacteriuria
-COVID/flu negative
-Urine culture/blood culture negative till date
-Currently on Rocephin empirically, follow T curve/WBC
2. Acute toxic metabolic encephalopathy
Dysphagia
-Encephalopathy due to above
-Patient continued to have increased risk of aspiration, speech therapy recommended for patient to be maintained n.p.o. today
-PSA to be postponed for weekend
3. Bradycardia
-Suspected from hypothermia at admission from sepsis
-Hold metoprolol as well
-Required dopamine support
-Echocardiogram showed preserved ejection fraction
-Cardiology following and pacemaker if have any other future indication
4. Acute pancreatitis
-No abdominal pain/nausea vomiting at this point
-Lipase almost normalized
-Will be started on diet once clears speech evaluation
5. Acute kidney injury
hold losartan hydrochlorothiazide. Continue IV fluids.
6. Microcytic anemia
SHANA
-Check iron studies in the morning
-No previous EGD. 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
-not on blood thinners
-hbg 6.9 today, will need 1 u prbc
-check stool for occult blood
For type 2 diabetes mellitus
Iron deficiency anemia
Thrombocytopenia
Moderate aortic stenosis
Severe degenerative joint disease of spine
Essential hypertension
History of diverticulosis
Gastroesophageal reflux disease
Hyperlipidemia
Dementia without behavioral problems
DVT prophylaxis-subcutaneous heparin
DNR status
Care plan discussed with patient [id number] at bedside
Total time spent : 52 mins
I personally saw and examined the patient.
I have reviewed all diagnostic interpretations and treatment plans as written.
Time includes patient management by me, time spent at the patients bedside, time to review lab and imaging results, discussing patient care, documentation in the medical record, and time spent with the family or caregiver and discussing care plan
with RN/Consultants.
Anticipated Discharge: > 48 hours
Subjective/Interval History
-
Date of Service: May 26, 2024
Patient more alert, remains pleasantly disoriented
Failed speech therapy relation in the morning
Requesting to be discharged to home
No voicing any specific complaints
Objective Data
-
Labs:
Laboratory Results
05/26/24 05/26/24
03:44 14:39
WBC 15.4 H Pending
Hgb 6.9 L* Pending
Hct 22.6 L Pending
Plt Count 111 L Pending
Sodium 144
Potassium 3.2 L
Chloride 112 H
Carbon Dioxide 18 L
BUN 59 H
Creatinine 1.5 H
Glucose 167 H
Calcium 8.2 L
Total Bilirubin 0.3
AST 39 H
ALT 33
Alkaline Phosphatase 106
Vital Signs:
Vital Signs
Temp Pulse Resp BP Pulse Ox
97.3 F 80 17 143/73 96
05/26/24 14:19 05/26/24 14:19 05/26/24 14:19 05/26/24 14:19 05/26/24 14:19
I&O
05/25/24 05/26/24 05/27/24
06:59 06:59 06:59
Intake Total 2885.0 / 3015.4 1962.5 / 2037.5 820 / 820
Output Total 350 / 350 600 / 600
Balance 2535.0 / 2665.4 1362.5 / 1437.5 820 / 820
Review of Systems
-
Unable to obtain full review of systems at this time due to: Dementia
Physical Exam
-
General: Comfortable, Appears Chronically Ill and Morbidly Obese
HEENT: Oxygen
Respiratory: Rhonchi
Cardiac: Regular Rhythm and S1/S2; Negative Murmur or Rub
GI: Soft, Nontender and Nondistended
Musculoskeletal: Edema, Right Lower Extrem and Edema, Left Lower Extrem
Neuro: Awake, Alert, No Motor Deficits and Nonfocal/Grossly Intact
Psych: Calm
[2024-05-26 15:00] LABS: Hematocrit 26.6 % (37.0-47.0); Hemoglobin 8.3 g/dL (12.0-16.0); Mean Corp Hgb Conc. 31.2 g/dL (33.0-37.0); Mean Corpuscular Volume 76.9 fL (81.0-99.0); Platelet Count 118 10^3/uL (130-400); Red Blood Cell Count 3.46 10^6/uL (4.20-5.40); White Blood Cell Count 16.6 10^3/uL (4.8-10.8)
--- NOTE | 2024-05-26 15:09 | CM ---
M following re: discharge planning.
Discussed in Rounds, reviewed pt's chart, met with pt. CM met with pt's son yesterday. Per Rounds meeting, pt oriented only to self only, remains in b/l soft wrist restraints and b/l hand mitts for safety, continue supportive care.
Pt lives with her son in a 2 story home and pt patient was independent with ADL and used a walker with ambulation.
PT and OT will evaluate the pt when clinically appropriate to determine a level of care at discharge.
D/C plan: uncertain at this time and will depend on pt's progress.
CM will follow with discharge plan updates as hospitalization progresses.
--- NOTE | 2024-05-26 15:24 | PTCARENOTE ---
Pt weaned down to 3L nasal cannula. SpO2 98%. Hgb now 8.3 s/p 1 unit PRBCs. Assessment unchanged.
--- NOTE | 2024-05-26 16:27 | PTCARENOTE ---
Pt transferred to [address] [place] [address].
[2024-05-26 16:29] LABS: Iron 73 ug/dl (37-170)
[2024-05-26 17:43] LABS: Ferritin 49.6 ng/ml (11.1-264.0)
[2024-05-26 18:11] LABS: Glucose - Point of Care 93 mg/dl (70-99)
[2024-05-27 00:13] LABS: Glucose - Point of Care 50 mg/dl (70-99)
[2024-05-27] MEDS: DEXTROSE 50% SYRINGE 12.5 GRAMS IV ×3 (00:14→17:52)
[2024-05-27] MEDS: NOVOLOG FLEXPEN-LOW RESISTANCE SC ×4 (00:25→17:58)
[2024-05-27 00:36] LABS: Glucose - Point of Care 119 mg/dl (70-99)
[2024-05-27] MEDS: D5W 1000 IV (01:10)
[2024-05-27 02:33] LABS: Glucose - Point of Care 90 mg/dl (70-99)
[2024-05-27 03:55] VITALS: BP 123/62
[2024-05-27 05:54] LABS: Glucose - Point of Care 76 mg/dl (70-99)
[2024-05-27 08:05] VITALS: BP 130/90
--- NOTE | 2024-05-27 08:09 | W.PN.CD ---
Addendum entered and electronically signed by Brennen Rosales MD 05/27/24 12:35:
88 yo female with moderate , paroxysmal SVT, dementia admitted with septic shock, hypothermia. Initially, had issues with bradycardia due to asystole and complete heart block. This seems to have resolved with treatment of sepsis. Exam with RRR,
II/ systolic murmur, 1+ LE edema.
Tele looks stable: no heart block.
Suspect iatrogenic volume overload. Discussed with hospitalist. Will give lasix 20mg IV x1.
Original Note:
Today's Communication / Plan
-
Follow telemetry, bigeminy overnight. No heart block or significant bradycardia.
Monitor edema.
Required transfusion yesterday for hemoglobin of 6.9
Labs for today are pending
Impression / Plan
-
IMPRESSION/PLAN: 88F with SVT, hypertension, hyperlipidemia, type 2 diabetes mellitus, cardioembolic stroke, aortic stenosis, and dementia who presented after a fall. She was confused, having difficulty weightbearing, hypothermic, and was found to
be bradycardic with sinus pauses.
Primary firer retort: Dr. Dennis Askew
Septic shock
-Arrived hypothermic with a rectal temp of 90.3 �F
-Cultures are negative so far (thought to be aspiration PNA)
Bradycardia
-Home Toprol XL 25mg daily stopped
-30 sec asystole in ED; then with periods of complete heart block and 2:1 in ICU, dopamine now off
-Last complete heart block was 05/24 at approx 1130am
-Treating reversible causes such as severe hypothermia and sepsis
-Discussed with patient and son Ba: if she needs PPM before d/c, they would be agreeable
Valvular heart disease
-TTE 05/24 with EF 50-55%, mild MS, moderate , mild/mod TR
-Monitor volume status, she has pitting B/L LE edema
CKD, stable
Anemia, 1 unit PRBC yesterday (Hgb 6.9)
Hypertension, agents on hold
PSVT, follow telemetry; Toprol XL stopped (see above)
Prior CVA, no atrial fibrillation on outpatient cardiac monitoring, on daily aspirin at home
NIDDM, on oral agents in the outpatient setting, per primary
Alzheimer's dementia, on memantine
SUBJECTIVE:
NPO per speech. Note reviewed.
Some Bigeminy overnight.
No CP. No SOB.
Physical Exam
Vital Signs/Labs
Vital Signs
Temp Pulse Resp BP Pulse Ox
97.3 F 77 18 130/90 95
05/27/24 08:05 05/27/24 08:05 05/27/24 08:05 05/27/24 08:05 05/27/24 08:05
05/26/24 05/27/24 05/28/24
06:59 06:59 06:59
Actual Weight 71.7 kg
PT 14.1 Sec (11.4-14.6) 05/23/24 20:59
INR 1.06 05/23/24 20:59
APTT 35.5 Sec (23.4-35.0) H 05/23/24 20:59
Magnesium 1.8 mg/dl (1.6-2.3) 05/26/24 03:44
Triglycerides 86 mg/dl (10-149) 05/24/24 03:38
LDL Cholesterol, Calc 22 mg/dl 05/24/24 03:38
VLDL Cholesterol, Calc 17 mg/dl (0-30) 05/24/24 03:38
HDL Cholesterol 92 mg/dl 05/24/24 03:38
TSH 2.10 uIU/ml (0.47-4.68) 05/24/24 03:38
05/23/24
20:59
Hks-I-Jmpoupbtvbo Pept 491
Physical Exam
Constitutional: No acute distress and Comfortable
EENT: Anicteric and Moist mucous membranes
Cardiovascular: Rhythm & rate is regular, Pedal edema present and S1S2 is normal
Respiratory: Respiratory effort normal and Other (diminished B/L LL)
GI: Soft, Distention absent, Flat, Non tender and Normal bowel sounds
Other: Skin (warm and dry)
Data Reviewed
-
Date of Service: May 27, 2024
[2024-05-27 09:25] LABS: ALT (SGPT) 41 U/L (0-35); AST (SGOT) 41 U/L (14-36); Albumin 2.9 g/dl (3.5-5.0); Alkaline Phosphatase 117 U/L (38-126); Blood Urea Nitrogen 49 mg/dl (7-17); Calcium 8.8 mg/dl (8.4-10.2); Carbon Dioxide 18 mmol/L (22-30); Chloride 113 mmol/L (98-107); Estimated Creatinine Clearance 33 ml/min; Glucose 67 mg/dl (70-99); Sodium 143 mmol/L (135-145); Total Bilirubin 0.3 mg/dl (0.2-1.3); Total Protein 5.4 g/dl (6.3-8.2); eGFR 44.08
[2024-05-27 09:32] LABS: % Basophils 0.1 % (0-2); % Eosinophils 0.3 % (0-6); % Immature Granulocytes 0.8 % (0-0.5); % Lymphocytes 3.3 % (20.5-51.1); % Monocytes 7.4 % (1.7-9.3); % Neutrophils 88.1 % (42.2-75.2); Absolute Eosinophils 0.1 10^3/uL (0-0.7); Absolute Immature Granulocytes 0.1 10^3/uL (0-0.05); Absolute Lymphocytes 0.6 10^3/uL (1.2-3.4); Absolute Monocytes 1.3 10^3/uL (0.1-0.6); Absolute Neutrophils 15.4 10^3/uL (1.4-6.5); Hematocrit 26.6 % (37.0-47.0); Hemoglobin 8.6 g/dL (12.0-16.0); Mean Corp Hgb Conc. 32.3 g/dL (33.0-37.0); Mean Corpuscular Hgb 24.2 pg (27.0-31.0); Mean Corpuscular Volume 74.9 fL (81.0-99.0); Nucleated Red Blood Cells % 0.3 %; Platelet Count 138 10^3/uL (130-400); Red Blood Cell Count 3.55 10^6/uL (4.20-5.40); Red Cell Dist. Width 15.8 % (11.5-14.5); White Blood Cell Count 17.5 10^3/uL (4.8-10.8)
[2024-05-27 09:36] LABS: Glucose - Point of Care 69 mg/dl (70-99)
[2024-05-27 10:10] LABS: Glucose - Point of Care 131 mg/dl (70-99)
[2024-05-27] MEDS: D10W 1000 IV (11:01)
[2024-05-27] MEDS: DESENEX/MITRAZOL/ZEASORB 1 APPLIC TOPICAL ×2 (11:02→20:16)
[2024-05-27] MEDS: KCL 270 MEQ IV (11:02)
[2024-05-27 12:00] VITALS: BP 140/70
[2024-05-27 12:19] LABS: Glucose - Point of Care 109 mg/dl (70-99)
[2024-05-27 12:50] LABS: Venous Blood Gas HCO3 17.5 mmol/L (22-27); Venous Blood Gas O2 Sat % 98.5 %; Venous Blood Gas pCO2 27 mmHg (35-48); Venous Blood Gas pH 7.42 (7.32-7.43); Venous Blood Gas pO2 174 mmHg (30-50)
[2024-05-27] MEDS: LASIX 20 MG IV (13:01)
[2024-05-27] MEDS: STERILE WATER FOR INJECTION 20 ML IV (13:02)
[2024-05-27] MEDS: ROCEPHIN 2000 MG IV (13:02)
--- NOTE | 2024-05-27 13:20 | RR ---
A Rapid Response was called on this patient, please see Rapid Response form.
Patient with confusion, drooling on one side of mouth and left sided facial droop. Patient's son in law at bedside and states this is new. notified, RR with stroke alert called.
--- NOTE | 2024-05-27 13:29 | W.PN.HOSP.TC ---
Today's Communication/Plan
-
see note
Assessment / Plan
Assessment / Plan
Chest x-ray-new tiny right pleural effusion, mild cardiomegaly, mild elevation of right hemidiaphragm
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 Severe multilevel lower lumbar discogenic DJD. Severe calcific atherosclerotic plaques in femoral arteries. Diffuse bone demineralization
Echo 1 22-25-LVEF 50 to 55%. Mild mitral stenosis. Moderate AAS. Mild to moderate TR
CT scan of the abdomen and pelvis-small bilateral pleural effusions. Moderate right lower lobe and mild left lower lobe consolidation. Possible pancreatitis. Simple cyst in the left kidney. Prior cholecystectomy. Severe atherosclerotic vascular
disease. Moderate fecal material throughout the colon. Mild diverticulosis.

1. Sepsis - POA
Presumed urinary vs pulm source
-CT abdomen pelvis showing small bilateral effusion and right lower lobe infiltrate
-UA showing pyuria bacteriuria
-COVID/flu negative
-Urine culture/blood culture negative till date
-Currently on Rocephin empirically, follow T curve/WBC
2. Acute toxic metabolic encephalopathy - waxing/waning
Dysphagia
-Encephalopathy due to above
-Patient continued to have increased risk of aspiration, speech therapy recommended for patient to be maintained n.p.o. today
-VSE to be postponed for weekend
3. Facial droop
-Patient was more somnolent/sedated today and noted to having facial droop on exam by nurse
-Stroke alert was called and neurology consulted
-Patient getting CT head stat right now
3. Bradycardia
-Suspected from hypothermia at admission from sepsis
-Hold metoprolol as well
-Required dopamine support
-Echocardiogram showed preserved ejection fraction
-Cardiology following and pacemaker if have any other future indication
4. Acute pancreatitis
-No abdominal pain/nausea vomiting at this point
-Lipase almost normalized
-Will be started on diet once clears speech evaluation
5. Acute kidney injury
hold losartan hydrochlorothiazide. Continue IV fluids.
6. Microcytic anemia
SHANA
-Ferriting 49, stool heme test pending
-No previous EGD. 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
-not on blood thinners
-Hbg 8.5 post 1 u prbc
For type 2 diabetes mellitus
Iron deficiency anemia
Thrombocytopenia
Moderate aortic stenosis
Severe degenerative joint disease of spine
Essential hypertension
History of diverticulosis
Gastroesophageal reflux disease
Hyperlipidemia
Dementia without behavioral problems
DVT prophylaxis-subcutaneous heparin
DNR status
Care plan discussed with patient [id number] at bedside
Total time spent : 53 mins
I personally saw and examined the patient.
I have reviewed all diagnostic interpretations and treatment plans as written.
Time includes patient management by me, time spent at the patients bedside, time to review lab and imaging results, discussing patient care, documentation in the medical record, and time spent with the family or caregiver and discussing care plan
with RN/Consultants.
Anticipated Discharge: 24 - 48 hours
Subjective/Interval History
-
Date of Service: May 27, 2024
Patient somewhat sedated and difficult to arouse
Was noted to hypoglycemic in the morning
Noted to have new facial droop by RN
Objective Data
-
Labs:
Laboratory Results
05/27/24
08:21
WBC 17.5 H
Hgb 8.6 L
Hct 26.6 L
Plt Count 138
Sodium 143
Potassium 3.0 L
Chloride 113 H
Carbon Dioxide 18 L
BUN 49 H
Creatinine 1.2 H
Glucose 67 L
Calcium 8.8
Total Bilirubin 0.3
AST 41 H
ALT 41 H
Alkaline Phosphatase 117
Vital Signs:
Vital Signs
Temp Pulse Resp BP Pulse Ox
97.6 F 76 17 140/70 93
05/27/24 12:00 05/27/24 13:01 05/27/24 12:00 05/27/24 13:01 05/27/24 12:00
I&O
05/26/24 05/27/24 05/28/24
06:59 06:59 06:59
Intake Total 1962.5 / 7.5 1240 / 1240
Output Total 600 / 600 300 / 300 500 / 500
Balance 1362.5 / 1437.5 940 / 940 -500 / -500
Review of Systems
-
Unable to obtain full review of systems at this time due to: Acuity
Physical Exam
-
General: Comfortable, Appears Chronically Ill and Morbidly Obese
HEENT: Oxygen
Respiratory: Rhonchi
Cardiac: Regular Rhythm and S1/S2; Negative Murmur or Rub
GI: Soft, Nontender and Nondistended
Musculoskeletal: Edema, Right Lower Extrem and Edema, Left Lower Extrem
Neuro: Facial Droop; Negative Awake, Alert or Oriented
Psych: Calm
[2024-05-27 13:30] LABS: Glucose - Point of Care 105 mg/dl (70-99)
--- NOTE | 2024-05-27 13:42 | CON.NEURO ---
Neuro Assessment/Plan
Assessment
Prior MRI of brain 04/2023:
1. 9 mm SUBACUTE ISCHEMIC INFARCT in the SUBCORTICAL WHITE MATTER of the SUPERIOR RIGHT FRONTAL LOBE demonstrating mild enhancement (probably 5-10 days old).
2. Multiple small chronic white matter infarcts in the frontal and parietal lobes.
3. Moderate white matter leukoaraiosis in both cerebral hemispheres.
4. Moderate to severe bilateral temporal lobe volume loss. Moderate volume loss in the frontal and parietal lobes. The appearance is consistent with a severe chronic neurodegenerative disease (possibly ALZHEIMER'S DEMENTIA).
5. Moderate number of tiny chronic intraparenchymal microhemorrhages in the cerebellar hemispheres, brainstem, right thalamus, parietal lobes, and left temporal lobe. 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
6. 9 mm meningioma anterior to the left frontal lobe which appears unchanged.
7. 3.6 mm SACCULAR ANEURYSM arising from the A2 segment of the right anterior cerebral artery which appears unchanged.
Abrupt/subacute change in mental status in a patient with chronic changes by MRI of brain demonstrated in 2022 suggestive of Alzheimer's disease. Differential diagnosis at this time includes subacute worsening of underlying dementia which may be
due to Alzheimer's or dementia with Lewy bodies
Plan
Check CT of head now, completed
No indication at this time patient would benefit from MRI brain, nor would the patient likely be able to tolerate the test
Supportive care
Based on severity of patient's cognitive function currently, unlikely patient would benefit from medications for memory stabilization including memantine
Provide medications for agitation in the form of quetiapine or haloperidol despite blackbox warnings suggesting increased risk of with the use of same
Will follow peripherally
Consultation
Order
Date of Consultation: 05/27/24
Requesting Provider: Hospitalist
Reason for Consult: Stroke Alert
Subjective/Objective
Subjective Data
Date of Service: May 27, 2024
Patient was admitted to this hospital on May 23, 2024 due to change mental status 2 days after having a fall. Patient was described as septic at that time. The patient was also described as experiencing bradycardia and found to have acute
pancreatitis. Due to persistent changes in mental status which have been ongoing since hospitalization but questionably worse during this nursing shift, a stroke alert was initiated. The patient herself is unable to find any medical history. The
patient may have experienced a worsening of mentation at approximately 0800 hrs.
Objective Data
Vital Signs
Temp Pulse Resp BP Pulse Ox
36.4 C 76 17 140/70 93
05/27/24 12:00 05/27/24 13:01 05/27/24 12:00 05/27/24 13:01 05/27/24 12:00
Lab Results
05/27/24 08:21
05/27/24 08:21
PT 14.1 Sec (11.4-14.6) 05/23/24 20:59
INR 1.06 05/23/24 20:59
APTT 35.5 Sec (23.4-35.0) H 05/23/24 20:59
Sodium 143 mmol/L (135-145) 05/27/24 08:21
Potassium 3.0 mmol/L (3.5-5.1) L 05/27/24 08:21
BUN 49 mg/dl (7-17) H 05/27/24 08:21
Glucose 67 mg/dl (70-99) L 05/27/24 08:21
Calcium 8.8 mg/dl (8.4-10.2) 05/27/24 08:21
Phosphorus 4.0 mg/dl (2.5-4.5) 05/26/24 03:44
Jio-U-Nrmidlzqkmm Pept 491 pg/ml 05/23/24 20:59
LDL Cholesterol, Calc 22 mg/dl 05/24/24 03:38
Vitamin B12 794 pg/ml (239-931) 05/24/24 03:38
Patient Allergies
Iodinated Contrast Media Allergy (Verified 07/19/19 14:20)
Hives
oxycodone HCl [From OxyContin] Adverse Reaction (Mild, Verified 07/19/19 14:20)
Vomiting
Review of Systems
-
Unable to obtain full review of systems at this time due to: Dementia
History Source: Patient
All other systems: Reviewed and negative
Physical Exam
-
General: No Apparent Distress and Appears Stated Age
Eyes: Round OU, [place] Conjunctivae and No Ptosis; Negative Able to visualize OU
HEENT: Anicteric and Moist Mucous Membranes
Neck: Full Range of Motion
Respiratory: No Dyspnea
Cardiac: No JVD
GI: Non-distended
Skin: Unremarkable
Extremities: No Clubbing, No Cyanosis and No Edema
Psych: Negative Intact Judgement/Insight
Extended Neurological Exam
Mood & Affect: Depressed and Other (Mildly agitated)
Attention Span & Concentration: Awake, Alert, No Difficulty with 2 Step Request and Other (Mild difficulty with single step requests); Negative Interactive (Intermittently interactive and at times refusing examiners requests)
Memory: Able to Recall (Own name), Reduced (For recall of month and year as well as location) and Unable to Recall Personal History
Tremor: Hand Tremor Absent and Head Tremor Absent
Involuntary Movement: None
Speech: Quality Unremarkable and Mildly Reduced Output
Cranial Nerve II: Left Eye: Pupillary Reactivity Unremarkable, Pupillary Size Unremarkable and Visual Smith Grossly Intact
Cranial Nerve II: Right Eye: Pupillary Reactivity Unremarkable, Pupillary Size Unremarkable and Visual Smith Grossly Intact
Cranial Nerves III, IV, : Extraocular Movement: Grossly Intact
Cranial Nerve V: Facial Sensation: Unable to Assess
Cranial Nerve VII: Facial Symmetry: Normal Facial Symmetry
Cranial Nerve VIII: Hearing: Unremarkable Hearing to Normal Conversational Volume
Cranial Nerves IX, X: Palate Movement: Palate Elevation Symmetric
Cranial Nerve XI: Shoulder Shrug: Unremarkable
Cranial Nerve XII: Tongue Protusion: Midline
Muscle Strength, Overall: Full Throughout
Muscle Bulk & Tone: Bulk Unremarkable and Tone Unremarkable
Pronator Drift: Unable to Assess
Deep Tendon Reflexes: Trace Throughout
Cold Sensation: Unable to Assess
Vibration Sensation: Unable to Assess
Touch Sensation: Unremarkable
Coordination: Reaches for Objects without Difficulty
Babinski Sign: Absent Bilaterally
Gait & Station: Unable to Assess
Data Reviewed
-
CT Head: Report Reviewed and Image Reviewed
Labs: Report Reviewed
Reviewed with: Physician and Nurse
Old Records: Summarized
Medications
-
Active Medications
Generic Name Dose Route Start Last Admin
Trade Name Freq PRN Reason Stop Dose Admin
Acetaminophen 650 mg 05/24/24 00:04
Acetaminophen 325 Mg Tablet PO 06/21/24 00:03
Q4HPRN PRN
mild pain/HACKETT/temp> 100.4F
Acetaminophen 650 mg 05/24/24 00:04
Acetaminophen 650 Mg Rectal Suppository RECTAL 06/21/24 00:03
Q4HPRN PRN
mild pain/HACKETT/temp> 100.4F
Bisacodyl 10 mg 05/24/24 00:04
Bisacodyl 10 Mg Rectal Suppository RECTAL 06/21/24 00:03
[id number] PRN
constipation
Ceftriaxone Sodium 2,000 mg 05/24/24 14:00 05/27/24 13:02
Ceftriaxone 2,000 Mg/20 Ml Vial IV 2,000 mg
Q24H SANDEEP Administration
Dextrose 12.5 grams 05/24/24 01:00 05/27/24 09:41
Dextrose 50% (0.5 Grams/Ml) 50 Ml Syringe IV 06/21/24 00:59 12.5 grams
[id number] PRN Administration
hypoglycemia
Protocol
Glucagon 1 mg 05/24/24 01:00
Glucagon 1 Mg Vial IM 06/21/24 00:59
PRN PRN
hypoglycemia - no IV access
Protocol
Heparin Sodium 5,000 units 05/24/24 16:00 05/26/24 08:48
Heparin 5,000 Units/Ml 1 Ml Vial SC 06/21/24 15:59 5,000 units
Q8 SANDEEP Administration
Potassium Chloride 40 meq/ 270 mls @ 67.5 mls/hr 05/27/24 10:39 05/27/24 11:02
Dextrose IV 05/27/24 14:38 270 mls
NOW STA Administration
Dextrose 1,000 mls @ 60 mls/hr 05/27/24 11:00 05/27/24 11:01
D10w IV 1,000 mls
.[id number] SANDEEP Administration
Insulin Aspart 0 units 05/24/24 00:04 05/27/24 06:09
Insulin Aspart Low Resistance 300 Units/3 Ml Pen.Injctr SC 06/21/24 00:03 Not Given
Q6 SANDEEP
Protocol
Miconazole Nitrate 0 applic 05/24/24 08:00 05/27/24 11:02
Miconazole Powder Bottle TOPICAL 06/21/24 07:59 1 applic
BID SANDEEP Administration
Ondansetron HCl 4 mg 05/24/24 01:02 05/24/24 01:00
Ondansetron 4 Mg/2 Ml Vial IV 06/21/24 01:01 4 mg
Q6HPRN PRN Administration
NAUSEA/VOMITING
Polyethylene Glycol 17 grams 05/24/24 00:04
Polyethylene Glycol Powder 17 Grams Packet PO 06/21/24 00:03
DAILYPRN PRN
constipation
Senna/Docusate Sodium 1 tablet 05/24/24 00:04
Docusate W/Senna (Martha-Colace) Tablet PO 06/21/24 00:03
BIDPRN PRN
constipation
Sodium Chloride 0 flush 05/23/24 23:00
Sodium Chloride 0.9% (Flush) Syringe IV 06/20/24 22:59
PER PROTOCOL SANDEEP
Sterile Water 20 ml 05/24/24 14:00 05/27/24 13:02
Sterile Water For Injection 20 Ml Vial IV 06/21/24 13:59 20 ml
Q24H SANDEEP Administration
Home Medications
�Medication �Instructions �Recorded
losartan 100 1 ea PO DAILY 12/08/12
mg-hydrochlorothiazide 12.5 mg
tablet
doxycycline hyclate 20 mg tablet 1 tab PO MOWEFR PRN rosacea 09/22/13
calcium 600 mg-D3 20 mcg-magnesium 1 ea PO DAILY 07/19/19
50 om-Eb-smnqww-william-boron
tablet (Calcium 600-D3 Plus
(mag-zinc))
calcium carbonate (Antacid 1 tab PO PRN PRN GERD 07/19/19
(calcium carbonate))
glipizide 10 mg tablet, extended 20 mg PO DAILY 07/19/19
release 24 hr
omeprazole 20 mg capsule,delayed 20 mg PO PRN PRN gerd 07/19/19
release
metoprolol succinate 25 mg 25 mg PO DAILY 05/24/24
tablet,extended release 24 hr
Past History
Past History
ED Past Medical History: HTN, NIDDM and Other (vertigo, dementia)
ED Past Surgical History: Appendectomy, Cholecystectomy, Gynecological (Hysterectomy) and Orthopedic
Social History
Tobacco: Non-smoker
Personal: Single
Living: alone
Family History
Family History: Other (reviewed and non-contributory)
[2024-05-27 15:34] VITALS: BP 121/79
[2024-05-27 17:51] LABS: Glucose - Point of Care 29 mg/dl (70-99)
[2024-05-27 18:13] LABS: Glucose - Point of Care 108 mg/dl (70-99)
[2024-05-27 19:00] VITALS: BP 165/78
[2024-05-27 20:03] LABS: Glucose - Point of Care 114 mg/dl (70-99)
[2024-05-27 21:16] LABS: Glucose - Point of Care 101 mg/dl (70-99)
[2024-05-27 23:00] VITALS: BP 139/77
[2024-05-28 00:03] LABS: Glucose - Point of Care 147 mg/dl (70-99)
[2024-05-28] MEDS: NOVOLOG FLEXPEN-LOW RESISTANCE SC (00:06)
[2024-05-28 03:00] VITALS: BP 103/61
[2024-05-28 05:58] LABS: Glucose - Point of Care 190 mg/dl (70-99)
[2024-05-28 06:00] VITALS: BMI 27.0
[2024-05-28] MEDS: NOVOLOG FLEXPEN-LOW RESISTANCE 1 UNITS SC (06:01)
[2024-05-28 07:00] VITALS: BP 149/74
[2024-05-28 07:04] LABS: % Basophils 0.2 % (0-2); % Eosinophils 0.5 % (0-6); % Lymphocytes 4.2 % (20.5-51.1); % Monocytes 7.2 % (1.7-9.3); % Neutrophils 86.9 % (42.2-75.2); Absolute Eosinophils 0.1 10^3/uL (0-0.7); Absolute Immature Granulocytes 0.2 10^3/uL (0-0.05); Absolute Lymphocytes 0.7 10^3/uL (1.2-3.4); Absolute Monocytes 1.3 10^3/uL (0.1-0.6); Absolute Neutrophils 15.4 10^3/uL (1.4-6.5); Hematocrit 26.9 % (37.0-47.0); Hemoglobin 8.6 g/dL (12.0-16.0); Mean Corpuscular Hgb 23.9 pg (27.0-31.0); Mean Corpuscular Volume 74.7 fL (81.0-99.0); Mean Platelet Volume 11.5 fL (7.4-10.4); Nucleated Red Blood Cells % 0.1 %; Platelet Count 157 10^3/uL (130-400); Red Cell Dist. Width 15.9 % (11.5-14.5); White Blood Cell Count 17.7 10^3/uL (4.8-10.8)
[2024-05-28 07:11] LABS: ALT (SGPT) 44 U/L (0-35); AST (SGOT) 40 U/L (14-36); Albumin 2.8 g/dl (3.5-5.0); Alkaline Phosphatase 118 U/L (38-126); Blood Urea Nitrogen 38 mg/dl (7-17); Calcium 8.5 mg/dl (8.4-10.2); Carbon Dioxide 18 mmol/L (22-30); Chloride 113 mmol/L (98-107); Estimated Creatinine Clearance 36 ml/min; Glucose 215 mg/dl (70-99); Potassium 3.3 mmol/L (3.5-5.1); Sodium 142 mmol/L (135-145); Total Bilirubin 0.3 mg/dl (0.2-1.3); Total Protein 5.2 g/dl (6.3-8.2); eGFR 48.94
[2024-05-28 08:41] LABS: Glucose - Point of Care 217 mg/dl (70-99)
[2024-05-28] MEDS: NOVOLOG FLEXPEN-LOW RESISTANCE 2 UNITS SC (09:42)
[2024-05-28] MEDS: DESENEX/MITRAZOL/ZEASORB 1 APPLIC TOPICAL ×2 (09:43→21:10)
--- NOTE | 2024-05-28 10:08 | W.PN.ID1 ---
Date of Service
Date of Service: May 28, 2024
Today's Communication
Continue ceftriaxone.
Assessment / Plan
s/p Septic Shock
Probable Aspiration Pneumonia
OLI on CKD
Dementia
Bradycardia - resolved
Pancreatitis - resolving, likely due to previous hypothermia/hypotension
- overall favor aspiration pneumonia, suspect aspiration may have been going on for some time
- urine culture mixed ambar, probable contamination
- blood cultures x2 neg
- Leukocytosis persists. No diarrhea. Is constipated
- c/w ceftriaxone
- follow cbc, renal function
Chief Complaint
-: UTI and Other (septic shock)
Subjective / Review of Systems
Acute change in mental status yesterday. Head CT no acute change.
Alert this AM. c/o hunger and wants to eat.
Vital Signs / Physical Exam
Vital Signs
Vital Signs
Temp Pulse Resp BP Pulse Ox
97.9 F 76 16 149/74 95
05/28/24 07:00 05/28/24 07:00 05/28/24 07:00 05/28/24 07:00 05/28/24 07:00
Physical Exam
Constitutional: Chronically Ill
Cardiovascular: Regular Rate and S1/S2
Pulmonary: Coarse (bases) and Other
Gastrointestinal: Soft, Non Tender, Non Distended and Normal Bowel Sounds
Skin: Rash and Jaundice
Neurological: Awake and Alert
Objective Data
Lab Data
Lab Results
05/28/24 06:34
05/28/24 06:34
PT 14.1 Sec (11.4-14.6) 05/23/24 20:59
INR 1.06 05/23/24 20:59
APTT 35.5 Sec (23.4-35.0) H 05/23/24 20:59
Estimated Creat Clear 36 ml/min 05/28/24 06:34
Lactic Acid Cancelled 05/24/24 01:45
Total Bilirubin 0.3 mg/dl (0.2-1.3) 05/28/24 06:34
AST 40 U/L (14-36) H 05/28/24 06:34
ALT 44 U/L (0-35) H 05/28/24 06:34
Alkaline Phosphatase 118 U/L (38-126) 05/28/24 06:34
Most recent labs reviewed.
Micro Results:
05/23/24 21:49 Blood Culture - Preliminary
Blood/Venous No Growth in 4 days- Final report to follow
05/23/24 21:49 Blood Culture - Preliminary
Blood/Venous No Growth in 4 days- Final report to follow
05/26/24 03:44 Legionella Urinary Antigen - Final
Urine Negative for Legionella pneumophila Serogroup 1 antigen.
A negative result does not rule out the possiblity of
Legionella infection due to other serogroups or species of
Legionella. Clinical correlation is recommended.
Streptococcus pneumoniae Antigen (M - Final
Negative for Streptococcus pneumoniae antigen.
A negative result does not exclude infection with
Streptococcus pneumoniae. Clinical correlation is
recommended.
05/23/24 20:59 Urine Culture - Final
Urine
--- NOTE | 2024-05-28 11:51 | W.PN.CD ---
Today's Communication / Plan
-
I would not recommend PPM evaluation unless clinical status improves; no acute indication at this time
lasix 40mg IV x1 today
Impression / Plan
-
IMPRESSION/PLAN: 88F with SVT, hypertension, hyperlipidemia, type 2 diabetes mellitus, cardioembolic stroke, aortic stenosis, and dementia who presented after a fall. She was confused, having difficulty weightbearing, hypothermic, and was found to
be bradycardic with sinus pauses.
Primary distribution agent: Dr. Dennis Askew
Septic shock: improved
-Arrived hypothermic with a rectal temp of 90.3 �F
-Cultures are negative so far (thought to be aspiration PNA)
Bradycardia
-Home Toprol XL 25mg daily stopped
-30 sec asystole in ED; then with periods of complete heart block and 2:1 in ICU, dopamine now off
-Last complete heart block was 05/24 at approx 1130am
-Treating reversible causes such as severe hypothermia and sepsis
-I would not recommend PPM evaluation unless clinical status improves; no acute indication at this time
Valvular heart disease
-TTE 05/24 with EF 50-55%, mild MS, moderate , mild/mod TR
-now with iatrogenic volume overload after treatment for sepsis
-lasix 40mg IV x1 today
CKD3a, stable
Anemia, 1 unit PRBC yesterday (Hgb 6.9)
Hypertension, agents on hold
PSVT, follow telemetry; Toprol XL stopped (see above)
Prior CVA, no atrial fibrillation on outpatient cardiac monitoring, on daily aspirin at home
NIDDM, on oral agents in the outpatient setting, per primary
Alzheimer's dementia, on memantine
.
Physical Exam
Vital Signs/Labs
Vital Signs
Temp Pulse Resp BP Pulse Ox
97.9 F 76 16 149/74 95
05/28/24 07:00 05/28/24 07:00 05/28/24 07:00 05/28/24 07:00 05/28/24 07:00
05/27/24 05/28/24 05/29/24
06:59 06:59 06:59
Actual Weight 71.214 kg
05/28/24 06:34
05/28/24 06:34
PT 14.1 Sec (11.4-14.6) 05/23/24 20:59
INR 1.06 05/23/24 20:59
APTT 35.5 Sec (23.4-35.0) H 05/23/24 20:59
Magnesium 1.8 mg/dl (1.6-2.3) 05/26/24 03:44
Triglycerides 86 mg/dl (10-149) 05/24/24 03:38
LDL Cholesterol, Calc 22 mg/dl 05/24/24 03:38
VLDL Cholesterol, Calc 17 mg/dl (0-30) 05/24/24 03:38
HDL Cholesterol 92 mg/dl 05/24/24 03:38
TSH 2.10 uIU/ml (0.47-4.68) 05/24/24 03:38
05/23/24
20:59
Iaa-D-Jrblvlkdvmg Pept 491
Physical Exam
Constitutional: No acute distress
EENT: Moist mucous membranes
Cardiovascular: Rhythm & rate is regular, Pedal edema present, JVD present and Systolic murmur present
Respiratory: Respiratory effort normal and Lungs clear to auscul.
Data Reviewed
-
Date of Service: May 28, 2024
EKG: Other (Tele: SR, PVC's)
Labs: Labs Reviewed by me
[2024-05-28 12:01] LABS: Glucose - Point of Care 210 mg/dl (70-99)
--- NOTE | 2024-05-28 12:36 | PTOTSP ---
ST Follow-Up
Pt's participation and overall tolerance with PO trials appears mildly improved, however, pt still presents with a very great risk for aspiration at this time. Pt currently presents with clinical signs of moderately-severe pharyngoesophageal
dysphagia characterized by fairly persistent weak coughing, throat clearing, and wet vocal quality changes after both small and large quantities of both thin and thick consistencies as well as persistent episodes of eructation/aerophagia after PO
intake.
Recommendations:
- Continue NPO except critical meds only in puree.
- ARHP - small sips of thin liquids only with RN supervision ONLY after comprehensive oral care has been provided.
- Aspiration and reflux precautions: HOB upright as often as possible; oral care QID.
- Consider goals of care conversations to determine if pursuit of instrumental swallow study is appropriate.
- INSOLE CEMENTER to f/u re: re-assessing appropriateness for PO diet initiation and to determine readiness/appropriateness for an instrumental swallow study.
[2024-05-28] MEDS: LASIX 40 MG IV (12:55)
--- NOTE | 2024-05-28 14:10 | W.PN.HOSP.TC ---
Today's Communication/Plan
-
see note
Assessment / Plan
Assessment / Plan
Chest x-ray-new tiny right pleural effusion, mild cardiomegaly, mild elevation of right hemidiaphragm
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 Severe multilevel lower lumbar discogenic DJD. Severe calcific atherosclerotic plaques in femoral arteries. Diffuse bone demineralization
Echo 1 22-25-LVEF 50 to 55%. Mild mitral stenosis. Moderate AAS. Mild to moderate TR
CT scan of the abdomen and pelvis-small bilateral pleural effusions. Moderate right lower lobe and mild left lower lobe consolidation. Possible pancreatitis. Simple cyst in the left kidney. Prior cholecystectomy. Severe atherosclerotic vascular
disease. Moderate fecal material throughout the colon. Mild diverticulosis.

1. Sepsis - POA
Presumed urinary vs pulmonary source
-CT abdomen pelvis showing small bilateral effusion and right lower lobe infiltrate
-UA showing pyuria bacteriuria
-COVID/flu negative
-Urine culture/blood culture negative till date
-Currently on Rocephin empirically, follow T curve/WBC
2. Acute toxic metabolic encephalopathy - waxing/waning
Dysphagia
Episode of hypoglycemia
-Encephalopathy due to above
-Patient continued to have increased risk of aspiration, speech therapy recommended for patient to be maintained n.p.o. today
-Patient had repeat episode of hypoglycemia yesterday morning and evening again, D5 has been changed to D10
-Patient more awake today although continued to feel speech therapy evaluation.
-Patient son Claude/Bill at bedside and upset as patient being not fed. I have discussed option of comfort feed with acceptance of risk that patient may have respiratory arrest VS overriding patient's wish and do tube feed through [facility] tube VS
continue retrial of speech eval
-Claude/mer has agreed to continue re-trial Speech eval tomorrow for now.
3. Facial droop -resolved
-Patient was more somnolent/sedated today and noted to having facial droop on exam by nurse
-Stroke alert was called and neurology consulted, CT head stroke neg
-MRI brain neg.
3. Bradycardia
-Suspected from hypothermia at admission from sepsis
-Hold metoprolol as well
-Required dopamine support
-Echocardiogram showed preserved ejection fraction
-Cardiology following and pacemaker if have any other future indication
4. Acute pancreatitis
-No abdominal pain/nausea vomiting at this point
-Lipase almost normalized
-Will be started on diet once clears speech evaluation
5. Acute kidney injury
hold losartan hydrochlorothiazide. Continue IV fluids.
6. Microcytic anemia
SHANA
-Ferriting 49, stool heme test pending
-No previous EGD. 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
-not on blood thinners
-Hbg 8.5 post 1 u prbc
For type 2 diabetes mellitus
Iron deficiency anemia
Thrombocytopenia
Moderate aortic stenosis
Severe degenerative joint disease of spine
Essential hypertension
History of diverticulosis
Gastroesophageal reflux disease
Hyperlipidemia
Dementia without behavioral problems
DVT prophylaxis-subcutaneous heparin
DNR status
Total time spent : 52mins
Anticipated Discharge: > 48 hours
Subjective/Interval History
-
Date of Service: May 28, 2024
Patient mentation is better
Patient is again awake and able to communicate, requesting to be discharged home
Patient also wanting to eat
Afebrile overnight
Had episode of hypoglycemia where blood glucose was down to 29 yesterday
Objective Data
-
Labs:
Laboratory Results
05/28/24
06:34
WBC 17.7 H
Hgb 8.6 L
Hct 26.9 L
Plt Count 157
Sodium 142
Potassium 3.3 L
Chloride 113 H
Carbon Dioxide 18 L
BUN 38 H
Creatinine 1.1 H
Glucose 215 H
Calcium 8.5
Total Bilirubin 0.3
AST 40 H
ALT 44 H
Alkaline Phosphatase 118
Vital Signs:
Vital Signs
Temp Pulse Resp BP Pulse Ox
97.9 F 76 16 149/74 95
05/28/24 07:00 05/28/24 12:55 05/28/24 07:00 05/28/24 12:55 05/28/24 07:00
I&O
05/27/24 05/28/24 05/29/24
06:59 06:59 06:59
Intake Total 1240 / 1240 720 / 720
Output Total 300 / 300 500 / 500
Balance 940 / 940 220 / 220
Review of Systems
-
Respiratory: Reports No Symptoms
Cardiac: Reports No Symptoms
Abdomen/GI: Reports No Symptoms
Physical Exam
-
General: Comfortable, Appears Chronically Ill and Morbidly Obese
HEENT: Oxygen
Respiratory: Rhonchi
Cardiac: Regular Rhythm and S1/S2; Negative Murmur or Rub
GI: Soft, Nontender and Nondistended
Musculoskeletal: Edema, Right Lower Extrem and Edema, Left Lower Extrem
Neuro: Facial Droop; Negative Awake, Alert or Oriented
Psych: Calm
[2024-05-28 15:00] VITALS: BP 125/60
[2024-05-28] MEDS: ROCEPHIN 2000 MG IV (15:33)
[2024-05-28] MEDS: STERILE WATER FOR INJECTION 20 ML IV (15:33)
[2024-05-28] MEDS: D10W 1000 IV (15:33)
[2024-05-28 15:57] VITALS: BP 125/60
[2024-05-28 16:58] LABS: Glucose - Point of Care 250 mg/dl (70-99)
[2024-05-28] MEDS: NOVOLOG FLEXPEN-LOW RESISTANCE 3 UNITS SC (17:54)
[2024-05-28 20:03] VITALS: BP 150/66
[2024-05-28 22:10] LABS: Glucose - Point of Care 235 mg/dl (70-99)
[2024-05-28 23:47] VITALS: BP 139/55
[2024-05-29 00:09] LABS: Glucose - Point of Care 226 mg/dl (70-99)
[2024-05-29] MEDS: NOVOLOG FLEXPEN-LOW RESISTANCE 2 UNITS SC (00:54)
[2024-05-29 03:35] VITALS: BP 153/67
[2024-05-29 05:47] LABS: % Basophils 0.2 % (0-2); % Eosinophils 0.7 % (0-6); % Immature Granulocytes 1.1 % (0-0.5); % Lymphocytes 3.3 % (20.5-51.1); % Monocytes 6.1 % (1.7-9.3); % Neutrophils 88.6 % (42.2-75.2); Absolute Eosinophils 0.1 10^3/uL (0-0.7); Absolute Immature Granulocytes 0.2 10^3/uL (0-0.05); Absolute Lymphocytes 0.6 10^3/uL (1.2-3.4); Absolute Monocytes 1.1 10^3/uL (0.1-0.6); Absolute Neutrophils 16.1 10^3/uL (1.4-6.5); Hematocrit 25.7 % (37.0-47.0); Hemoglobin 8.3 g/dL (12.0-16.0); Mean Corp Hgb Conc. 32.3 g/dL (33.0-37.0); Mean Corpuscular Hgb 24.1 pg (27.0-31.0); Mean Corpuscular Volume 74.5 fL (81.0-99.0); Mean Platelet Volume 11.5 fL (7.4-10.4); Nucleated Red Blood Cells % 0.1 %; Platelet Count 162 10^3/uL (130-400); Red Blood Cell Count 3.45 10^6/uL (4.20-5.40); Red Cell Dist. Width 15.8 % (11.5-14.5); White Blood Cell Count 18.2 10^3/uL (4.8-10.8)
[2024-05-29 05:56] LABS: ALT (SGPT) 50 U/L (0-35); AST (SGOT) 43 U/L (14-36); Albumin 2.6 g/dl (3.5-5.0); Alkaline Phosphatase 116 U/L (38-126); Blood Urea Nitrogen 31 mg/dl (7-17); Calcium 8.3 mg/dl (8.4-10.2); Carbon Dioxide 22 mmol/L (22-30); Chloride 109 mmol/L (98-107); Estimated Creatinine Clearance 39 ml/min; Glucose 165 mg/dl (70-99); Potassium 2.8 mmol/L (3.5-5.1); Sodium 142 mmol/L (135-145); Total Bilirubin 0.3 mg/dl (0.2-1.3); Total Protein 4.9 g/dl (6.3-8.2); eGFR 54.87
[2024-05-29 06:00] VITALS: BMI 27.0
[2024-05-29 06:14] LABS: Glucose - Point of Care 157 mg/dl (70-99)
[2024-05-29] MEDS: NOVOLOG FLEXPEN-LOW RESISTANCE 1 UNITS SC (06:21)
[2024-05-29 08:04] VITALS: BP 152/72
--- NOTE | 2024-05-29 08:05 | PTOTSP ---
Speech Language Pathology
Pt seen for dysphagia tx. P.O. trials of ice chip, thin liquids via straw, and puree provided. Immediate cough with ice chip. Audible swallow noted with puree. Thin liquids provided initially with no overt signs of aspiration, but when provided
after puree, coughing noted.
Pt is at a very high risk for aspiration. Rec instrumental swallowing assessment. Pt stating she does not want to do test, but do not suspect pt understands. Will discuss with MD.
Recommend:
(1) VSE
(2) NPO
(3) Oral care 4x/day with suctioning as needed
(4) Non-oral meds
(5) Allow sparing sips of water post oral care given supervision per Aspiration Risk Hydration Protocol (ARHP)
(6) MAINTENANCE DEPARTMENT MANAGER to continue to follow
--- NOTE | 2024-05-29 08:41 | W.PN.CD ---
Today's Communication / Plan
-
patient is NPO due to concern for aspiration, video swallowing pending
IV potassium repletion, and re-check after
no lasix today
Impression / Plan
-
IMPRESSION/PLAN: 88F with SVT, hypertension, hyperlipidemia, type 2 diabetes mellitus, cardioembolic stroke, aortic stenosis, and dementia who presented after a fall. She was confused, having difficulty weightbearing, hypothermic, and was found to
be bradycardic with sinus pauses.
Primary sterile technician: Dr. Dennis Askew
Severe hypokalemia
-K 2.8
-no diuretic today
-patient is NPO due to concern for aspiration, video swallowing pending
-IV potassium repletion, and re-check after
Septic shock: improved
-Arrived hypothermic with a rectal temp of 90.3 �F
-Cultures are negative so far (thought to be aspiration PNA)
Bradycardia
-Home Toprol XL 25mg daily stopped
-30 sec asystole in ED; then with periods of complete heart block and 2:1 in ICU, dopamine now off
-Last complete heart block was 05/24 at approx 1130am
-Treating reversible causes such as severe hypothermia and sepsis
-I would not recommend PPM evaluation unless clinical status improves; no acute indication at this time
Valvular heart disease
-TTE 05/24 with EF 50-55%, mild MS, moderate , mild/mod TR
-now with iatrogenic volume overload after treatment for sepsis
-hold lasix due to hypokalemia
PVC's
-no sxs
-monitor
CKD3a, stable
Anemia, 1 unit PRBC yesterday (Hgb 6.9)
Hypertension, agents on hold
PSVT, follow telemetry; Toprol XL stopped (see above)
Prior CVA, no atrial fibrillation on outpatient cardiac monitoring, on daily aspirin at home
NIDDM, on oral agents in the outpatient setting, per primary
Alzheimer's dementia, on memantine
.
Physical Exam
Vital Signs/Labs
Vital Signs
Temp Pulse Resp BP Pulse Ox
97.9 F 74 20 152/72 100
05/29/24 08:04 05/29/24 08:04 05/29/24 08:04 05/29/24 08:04 05/29/24 08:04
05/28/24 05/29/24 05/30/24
06:59 06:59 06:59
Actual Weight 71.214 kg 71.169 kg
05/29/24 05:19
05/29/24 05:19
PT 14.1 Sec (11.4-14.6) 05/23/24 20:59
INR 1.06 05/23/24 20:59
APTT 35.5 Sec (23.4-35.0) H 05/23/24 20:59
Magnesium 1.8 mg/dl (1.6-2.3) 05/26/24 03:44
Triglycerides 86 mg/dl (10-149) 05/24/24 03:38
LDL Cholesterol, Calc 22 mg/dl 05/24/24 03:38
VLDL Cholesterol, Calc 17 mg/dl (0-30) 05/24/24 03:38
HDL Cholesterol 92 mg/dl 05/24/24 03:38
TSH 2.10 uIU/ml (0.47-4.68) 05/24/24 03:38
05/23/24
20:59
[id number] Pept 491
Physical Exam
Constitutional: No acute distress
EENT: Moist mucous membranes
Cardiovascular: Rhythm & rate is regular, Pedal edema present, JVD present and Systolic murmur present
Respiratory: Respiratory effort normal and Crackles Present
Data Reviewed
-
Date of Service: May 29, 2024
EKG: Other (Tele: SR, PVC's)
Labs: Labs Reviewed by me
[2024-05-29] MEDS: DESENEX/MITRAZOL/ZEASORB 1 APPLIC TOPICAL ×2 (08:58→22:08)
[2024-05-29] MEDS: KCL 270 MEQ IV (08:59)
--- NOTE | 2024-05-29 09:21 | W.PN.HOSP.TC ---
Today's Communication/Plan
-
IV fluids. IV antibiotics. VSE swallow eval. Goals of care discussions
Assessment / Plan
Assessment / Plan
Physical exam:
General: Acute on chronically ill
HEENT: Normocephalic, Atraumatic and dry Mucous Membranes
Respiratory: Coarse rhonchi bilateral; Negative Wheezes, Rales
Cardiac: Regular Rhythm and S1/S2
GI: Soft, Nontender and Nondistended
Musculoskeletal: No Clubbing, No Cyanosis and No Edema
Neuro: Awake, Alert and Disoriented, no grossly neurological deficits
Psych: Limited judgment and insight
Diagnostic tools:
Chest x-ray-new tiny right pleural effusion, mild cardiomegaly, mild elevation of right hemidiaphragm
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 Severe multilevel lower lumbar discogenic DJD. Severe calcific atherosclerotic plaques in femoral arteries. Diffuse bone demineralization
Echo 1 22-25-LVEF 50 to 55%. Mild mitral stenosis. Moderate AAS. Mild to moderate TR
CT scan of the abdomen and pelvis-small bilateral pleural effusions. Moderate right lower lobe and mild left lower lobe consolidation. Possible pancreatitis. Simple cyst in the left kidney. Prior cholecystectomy. Severe atherosclerotic vascular
disease. Moderate fecal material throughout the colon. Mild diverticulosis.

A/P:
1. Septic shock- POA. Shock resolved.
Source likely aspiration pneumonia. Blood cultures negative
-Currently on Rocephin day 7 out of 14
-Discussed with ID via [place] text today on 05/29
-Speech therapy reevaluated patient today. VSE noticed ongoing aspiration and recommended keep n.p.o.
-Noted several discussions about goals of care by several physicians. On my view, patient is a hospice candidate therefore will have hospice consult and will discuss with family in detail. Ultimately, it will be up to the family for final decision.
2. Dysphagia with recurrent aspiration events
-Speech therapy reevaluated patient today. VSE noticed aspiration recommended keep n.p.o.
-Keep n.p.o. and restart IV fluids
3. Acute toxic metabolic encephalopathy - waxing/waning
Dysphagia
Episode of hypoglycemia
-Encephalopathy due to above and underlying dementia
-She has received D10 and D5 over the last several days. Restart D5 half-normal saline.
4. Facial droop -resolved
-Patient was more somnolent/sedated today and noted to having facial droop on exam by nurse
-Stroke alert was called and neurology consulted, CT head stroke neg
-MRI brain neg.
5. Bradycardia
-Suspected from hypothermia at admission from sepsis
-Hold metoprolol as well
-Required dopamine support
-Echocardiogram showed preserved ejection fraction
-Cardiology following and pacemaker if have any other future indication
6. Acute pancreatitis
-No abdominal pain/nausea vomiting at this point
-Lipase almost normalized
-Will be started on diet once clears speech evaluation
6. Acute kidney injury
hold losartan hydrochlorothiazide. Continue IV fluids.
7. Microcytic anemia
SHANA
-Ferritin 49, stool heme test pending
-No previous EGD. Colonoscopy in 2010 showing diverticular disease
-not on blood thinners
-Hbg 8.3
-S/p 1 u prbc
For type 2 diabetes mellitus
Iron deficiency anemia
Thrombocytopenia
Moderate aortic stenosis
Severe degenerative joint disease of spine
Essential hypertension
History of diverticulosis
Gastroesophageal reflux disease
Hyperlipidemia
Dementia without behavioral problems
DVT prophylaxis-subcutaneous heparin
DNR status
Total time spent on today's encounter was 52 minutes which included time spent in counseling the patient/family regarding diagnosis and treatment plan as listed above, goals of care, and symptom management. Case was discussed with nursing staff,
specialists, and care coordinators/case management. All labs and imaging personally reviewed by me. Remainder the time spent in detailed review of previous records, lab data, imaging, and other medical provider documentation.
Anticipated Discharge: > 48 hours
Subjective/Interval History
-
Date of Service: May 29, 2024
Patient looks frail overall. Afebrile today
Objective Data
-
Labs:
Laboratory Results
05/29/24 05/29/24
05:19 13:30
WBC 18.2 H
Hgb 8.3 L
Hct 25.7 L
Plt Count 162
Sodium 142 Pending
Potassium 2.8 L Pending
Chloride 109 H Pending
Carbon Dioxide 22 Pending
BUN 31 H Pending
Creatinine 1.0 Pending
Glucose 165 H Pending
Calcium 8.3 L Pending
Total Bilirubin 0.3
AST 43 H
ALT 50 H
Alkaline Phosphatase 116
Vital Signs:
Vital Signs
Temp Pulse Resp BP Pulse Ox
97.9 F 74 20 152/72 100
05/29/24 08:04 05/29/24 08:04 05/29/24 08:04 05/29/24 08:04 05/29/24 08:04
I&O
05/28/24 05/29/24 05/30/24
06:59 06:59 06:59
Intake Total 720 / 720
Output Total 500 / 500
Balance 220 / 220
--- NOTE | 2024-05-29 10:35 | PTOTSP ---
Speech Language Pathology
VIDEOFLUOROSCOPIC SWALLOWING EXAMINATION (VSE) completed. Mild oral and mod-severe pharyngeal dysphagia noted. Penetration/aspiration consistently noted. Regular solids resulted in penetration to the level of the vocal folds (PAS 5). All other
consistencies (thin liquid via tsp/cup, mildly thick liquids via tsp/cup, moderately thick liquids via tsp, puree) with silent aspiration (PAS 8). Aspiration was of a trace amount. Cued cough/reswallow ineffective at clearing aspirated material.
As aspiration is silent, dysphagia could be chronic. Pt with current PNA, but no prior PNA.
Recommend:
(1) NPO
(2) Goals of care discussion
(3) Oral care 4x/day with suctioning as needed
(4) Non-oral meds
(5) Allow sparing sips of water post oral care given supervision per Aspiration Risk Hydration Protocol (ARHP)
(6) REELING OPERATOR to continue to follow
[2024-05-29 12:39] LABS: Glucose - Point of Care 144 mg/dl (70-99)
[2024-05-29] MEDS: NOVOLOG FLEXPEN-LOW RESISTANCE SC ×2 (12:53→18:00)
--- NOTE | 2024-05-29 13:30 | W.PN.ID1 ---
Date of Service
Date of Service: May 29, 2024
Today's Communication
- c/w ceftriaxone day 7 of 14 of rx - eventual transition to cefdinir when taking oral medications
- follow cbc, renal function
- prognosis guarded in the medium term of months, concern for recurrent aspiration, progressive acquisition of resistant pathogens, eventual
Assessment / Plan
s/p Septic Shock
Probable Aspiration Pneumonia
OLI on CKD
Dementia
Bradycardia - resolved
Pancreatitis - resolving, likely due to previous hypothermia/hypotension
- overall favor aspiration pneumonia, suspect aspiration may have been going on for some time
- urine culture mixed ambar, probable contamination
- blood cultures x2 neg
- Leukocytosis persists, having BMs
- c/w ceftriaxone day 7 of 14 of rx - eventual transition to cefdinir when taking oral medications
- prognosis guarded in the medium term of months, concern for recurrent aspiration, progressive acquisition of resistant pathogens, eventual
Chief Complaint
-: UTI and Other (septic shock)
Subjective / Review of Systems
afebrile
bp stable
aspiration noted with RF video fluro swallow exam
POA form was laid out but not signed per son Ba - Ba feels that her wishes were well laid out.
Vital Signs / Physical Exam
Vital Signs
Vital Signs
Temp Pulse Resp BP Pulse Ox
97.9 F 74 20 152/72 100
05/29/24 08:04 05/29/24 08:04 05/29/24 08:04 05/29/24 08:04 05/29/24 08:04
Physical Exam
Constitutional: No Acute Distress and Chronically Ill
Cardiovascular: Regular Rate and S1/S2; Negative Murmur or Rub
Pulmonary: Clear and Symmetric; Negative Wheezes or Rales
Gastrointestinal: Soft, Non Tender, Non Distended and Normal Bowel Sounds
Skin: Warm and Dry; Negative Rash or Jaundice
Objective Data
Lab Data
Lab Results
05/29/24 05:19
PT 14.1 Sec (11.4-14.6) 05/23/24 20:59
INR 1.06 05/23/24 20:59
APTT 35.5 Sec (23.4-35.0) H 05/23/24 20:59
Estimated Creat Clear 39 ml/min 05/29/24 05:19
Lactic Acid Cancelled 05/24/24 01:45
Total Bilirubin 0.3 mg/dl (0.2-1.3) 05/29/24 05:19
AST 43 U/L (14-36) H 05/29/24 05:19
ALT 50 U/L (0-35) H 05/29/24 05:19
Alkaline Phosphatase 116 U/L (38-126) 05/29/24 05:19
Most recent labs reviewed.
Micro Results:
05/23/24 21:49 Blood Culture - Final
Blood/Venous No Growth - Final Report
05/23/24 21:49 Blood Culture - Final
Blood/Venous No Growth - Final Report
05/26/24 03:44 Legionella Urinary Antigen - Final
Urine Negative for Legionella pneumophila Serogroup 1 antigen.
A negative result does not rule out the possiblity of
Legionella infection due to other serogroups or species of
Legionella. Clinical correlation is recommended.
Streptococcus pneumoniae Antigen (M - Final
Negative for Streptococcus pneumoniae antigen.
A negative result does not exclude infection with
Streptococcus pneumoniae. Clinical correlation is
recommended.
05/23/24 20:59 Urine Culture - Final
Urine
Care Review
Plan reviewed with: Physician (Dr Frances dalton, meds)
[2024-05-29] MEDS: ROCEPHIN 2000 MG IV (14:09)
[2024-05-29] MEDS: STERILE WATER FOR INJECTION 20 ML IV (14:09)
--- NOTE | 2024-05-29 14:36 | HOSPNOTE ---
Spoke with son Ba about hospice and the philosophy. The plan is for Ba to speak with his siblings and then we will arrange a conference call and then make some decisions. Ba will contact me tomorrow with a time for the conference call. More
information to follow.
[2024-05-29 14:43] LABS: Blood Urea Nitrogen 28 mg/dl (7-17); Calcium 8.3 mg/dl (8.4-10.2); Carbon Dioxide 24 mmol/L (22-30); Chloride 110 mmol/L (98-107); Estimated Creatinine Clearance 39 ml/min; Glucose 148 mg/dl (70-99); Potassium 3.1 mmol/L (3.5-5.1); Sodium 142 mmol/L (135-145); eGFR 54.87
[2024-05-29 15:45] VITALS: BP 158/70
[2024-05-29] MEDS: D5/0.45%NSS with KCL 20 MEQ 1000 IV (16:09)
--- NOTE | 2024-05-29 16:46 | CM ---
Received consult for hospice.
Spoke with Ba son [phone] explained consult for hospice was ordered by MD.
He said he would like hospice.Referral placed in care port [facility] called.
St[facility] Lobo spoke with son.
Pt on oxygen 3 liters Pox 100%.
Pt confused.
PLAN hospice to evaluate and treat
[2024-05-29 17:56] LABS: Glucose - Point of Care 130 mg/dl (70-99)
[2024-05-29 19:52] VITALS: BP 118/73
[2024-05-30] VITALS (7 sets, daily range): BP systolic 122–164; BP diastolic 47–78
[2024-05-30 00:15] LABS: Glucose - Point of Care 172 mg/dl (70-99)
[2024-05-30] MEDS: NOVOLOG FLEXPEN-LOW RESISTANCE 1 UNITS SC ×2 (00:17→07:55)
[2024-05-30 06:13] LABS: % Basophils 0.1 % (0-2); % Eosinophils 1.1 % (0-6); % Immature Granulocytes 1.2 % (0-0.5); % Lymphocytes 3.3 % (20.5-51.1); % Monocytes 4.9 % (1.7-9.3); % Neutrophils 89.4 % (42.2-75.2); Absolute Eosinophils 0.2 10^3/uL (0-0.7); Absolute Immature Granulocytes 0.3 10^3/uL (0-0.05); Absolute Lymphocytes 0.7 10^3/uL (1.2-3.4); Absolute Monocytes 1.1 10^3/uL (0.1-0.6); Absolute Neutrophils 19.3 10^3/uL (1.4-6.5); Hemoglobin 8.7 g/dL (12.0-16.0); Mean Corp Hgb Conc. 32.2 g/dL (33.0-37.0); Mean Corpuscular Volume 74.4 fL (81.0-99.0); Mean Platelet Volume 11.7 fL (7.4-10.4); Nucleated Red Blood Cells % 0 %; Platelet Count 205 10^3/uL (130-400); Red Blood Cell Count 3.63 10^6/uL (4.20-5.40); White Blood Cell Count 21.6 10^3/uL (4.8-10.8)
[2024-05-30] MEDS: D5/0.45%NSS with KCL 20 MEQ 1000 IV ×2 (06:15→23:34)
[2024-05-30 06:34] LABS: Blood Urea Nitrogen 24 mg/dl (7-17); Calcium 8.3 mg/dl (8.4-10.2); Carbon Dioxide 22 mmol/L (22-30); Chloride 111 mmol/L (98-107); Estimated Creatinine Clearance 43 ml/min; Glucose 165 mg/dl (70-99); Magnesium 1.9 mg/dl (1.6-2.3); Phosphorus 2.3 mg/dl (2.5-4.5); Potassium 3.4 mmol/L (3.5-5.1); Sodium 143 mmol/L (135-145); eGFR > 60.00
[2024-05-30 07:03] LABS: Glucose - Point of Care 153 mg/dl (70-99)
--- NOTE | 2024-05-30 07:39 | W.PN.CD ---
Today's Communication / Plan
-
stable onttelemetry
replace potassium
continue to monitor on tele
faint wheeze on exam. WBC up to 21
- abx per ID
- aspiration issues being addressed as per hospitalists and speech therapy
- check follow up CXR
Impression / Plan
-
IMPRESSION/PLAN: 88F with SVT, hypertension, hyperlipidemia, type 2 diabetes mellitus, cardioembolic stroke, aortic stenosis, and dementia who presented after a fall. She was confused, having difficulty weightbearing, hypothermic, and was found to
be bradycardic with sinus pauses.
Primary superior court justice: Dr. Dennis Askew
Severe hypokalemia
-K 2.8. Improving. now 3.4. repalcement per primary team
-no diuretic today
-patient is NPO due to concern for aspiration, swallowing study with evidence of aspiration see report
-IV potassium repletion, and re-check after
Septic shock: improved
-Arrived hypothermic with a rectal temp of 90.3 �F
-Cultures are negative so far (thought to be aspiration PNA)
- ID following
- wbc rising to 21
Bradycardia
-Home Toprol XL 25mg daily stopped
-30 sec asystole in ED; then with periods of complete heart block and 2:1 in ICU, dopamine now off
-Last complete heart block was 05/24 at approx 1130am
-Treating reversible causes such as severe hypothermia and sepsis
- no significant bradyarrhythmias over last 24 hours. Continue to monitor now that hypokalenia improved and hypothermia resolved.
resp - remains on o2. faint wheeze .
Valvular heart disease
-TTE 05/24 with EF 50-55%, mild MS, moderate , mild/mod TR
-now with iatrogenic volume overload after treatment for sepsis
-hold lasix due to hypokalemia
PVC's
-no sxs
-monitor
CKD3a, stable
Anemia, 1 unit PRBC (Hgb 6.9) this amdit. Monitor
Hypertension, agents on hold
PSVT, follow telemetry; Toprol XL stopped (see above)
Prior CVA, no atrial fibrillation on outpatient cardiac monitoring, on daily aspirin at home
NIDDM, on oral agents in the outpatient setting, per primary
Alzheimer's dementia, on memantine
.
Physical Exam
Vital Signs/Labs
Vital Signs
Temp Pulse Resp BP Pulse Ox
97.6 F 73 16 149/61 100
05/30/24 07:24 05/30/24 07:24 05/30/24 07:24 05/30/24 07:24 05/30/24 07:24
05/29/24 05/30/24 05/31/24
06:59 06:59 06:59
Actual Weight 71.169 kg
05/30/24 05:42
05/30/24 05:42
PT 14.1 Sec (11.4-14.6) 05/23/24 20:59
INR 1.06 05/23/24 20:59
APTT 35.5 Sec (23.4-35.0) H 05/23/24 20:59
Magnesium 1.9 mg/dl (1.6-2.3) 05/30/24 05:42
Triglycerides 86 mg/dl (10-149) 05/24/24 03:38
LDL Cholesterol, Calc 22 mg/dl 05/24/24 03:38
VLDL Cholesterol, Calc 17 mg/dl (0-30) 05/24/24 03:38
HDL Cholesterol 92 mg/dl 05/24/24 03:38
TSH 2.10 uIU/ml (0.47-4.68) 05/24/24 03:38
05/23/24
20:59
[id number]-H-[id number] Pept 491
Physical Exam
Constitutional: No acute distress
Cardiovascular: Rhythm & rate is regular
Respiratory: Wheeze Present
GI: Soft and Non tender
Neuro/Psych: Alert
Data Reviewed
-
Date of Service: May 30, 2024
Medical Decision Making: Reviewed Test Results
X-Ray/CT/US/MRI/NUC/PET: Report Reviewed by me and Other (cxr ordered )
Medical Tests (PFT, Pathology etc): Image Personally Visualized and interpreted
Labs: Labs Reviewed by me
[2024-05-30] MEDS: DESENEX/MITRAZOL/ZEASORB 1 APPLIC TOPICAL ×2 (07:56→19:43)
[2024-05-30] MEDS: KCL 270 MEQ IV (09:23)
--- NOTE | 2024-05-30 09:40 | PTOTSP ---
Speech Language Pathology
Pt seen for dysphagia tx. Reviewed results/recommendations from VSE with silent aspiration of almost all textures. Pt does not recall this discussion from yesterday. Hospice has been consulted. Seen with single cup sips of thin water. No overt
signs of aspiration, but silent aspiration was noted on VSE, so suspect silent aspiration occurred. Educated on idea of comfort feeds if pt going hospice and importance of occasional throat clear/cough and reswallow in an attempt to clear laryngeal
vestibule. Pt remains at a high risk for aspiration.
Recommend:
(1) NPO
(2) Continued goals of care discussion
(3) If comfort feeds are to be initiated, would consider regular solids/thin liquids. Aspiration will occur with all liquids and thickener would be more detrimental to lungs
(4) Oral care 4x/day with suctioning as needed
(5) Non-oral meds
(6) Allow sparing sips of water post oral care given supervision per Aspiration Risk Hydration Protocol (ARHP)
(7) BOOM SUPERVISOR to continue to follow
--- NOTE | 2024-05-30 09:48 | W.PN.HOSP.TC ---
Today's Communication/Plan
-
IV antibiotics. IV fluids. IV Lasix. Hospice consult
Assessment / Plan
Assessment / Plan
Physical exam:
General: Acute on chronically ill
HEENT: Normocephalic, Atraumatic and dry Mucous Membranes
Respiratory: Coarse rhonchi bilateral; Negative Wheezes, Rales
Cardiac: Regular Rhythm and S1/S2
GI: Soft, Nontender and Nondistended
Musculoskeletal: No Clubbing, No Cyanosis and No Edema
Neuro: Awake, Alert and Disoriented, no grossly neurological deficits
Psych: Limited judgment and insight
Diagnostic tools:
Chest x-ray-new tiny right pleural effusion, mild cardiomegaly, mild elevation of right hemidiaphragm
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 Severe multilevel lower lumbar discogenic DJD. Severe calcific atherosclerotic plaques in femoral arteries. Diffuse bone demineralization
Echo 1 22-25-LVEF 50 to 55%. Mild mitral stenosis. Moderate AAS. Mild to moderate TR
CT scan of the abdomen and pelvis-small bilateral pleural effusions. Moderate right lower lobe and mild left lower lobe consolidation. Possible pancreatitis. Simple cyst in the left kidney. Prior cholecystectomy. Severe atherosclerotic vascular
disease. Moderate fecal material throughout the colon. Mild diverticulosis.

A/P:
1. Septic shock- POA. Shock resolved.
Source likely aspiration pneumonia. Blood cultures negative
-Currently on Rocephin day 7 out of 14
-Discussed with ID via [facility] text on 05/29
-Speech therapy reevaluated patient today. VSE noticed ongoing aspiration and recommended keep n.p.o.
-Noted several discussions about goals of care by several physicians. On my view, patient is a hospice candidate therefore will have hospice consult and will discuss with family in detail. Ultimately, it will be up to the family for final
decision. Discussed with son, Ba-family is leaning towards hospice and they are on discussions with hospice at the moment.
2. Dysphagia with recurrent aspiration events
-Speech therapy reevaluated patient today. VSE noticed aspiration recommended keep n.p.o.
-Keep n.p.o. and cont IV fluids
-IV Lasix today to keep balance of volume
3. Acute toxic metabolic encephalopathy - waxing/waning
Dysphagia
Episode of hypoglycemia
-Encephalopathy due to above and underlying dementia
-She has received D10 and D5 over the last several days. Restarted D5 half-normal saline.
4. Facial droop -resolved
-Patient was more somnolent/sedated today and noted to having facial droop on exam by nurse
-Stroke alert was called and neurology consulted, CT head stroke neg
-MRI brain neg.
5. Bradycardia
-Suspected from hypothermia at admission from sepsis
-Hold metoprolol as well
-Required dopamine support
-Echocardiogram showed preserved ejection fraction
-Cardiology following and pacemaker if have any other future indication
6. Acute pancreatitis
-No abdominal pain/nausea vomiting at this point
-Lipase almost normalized
-Will be started on diet once clears speech evaluation
6. Acute kidney injury
hold losartan hydrochlorothiazide. Continue IV fluids.
7. Microcytic anemia
SHANA
-Ferritin 49, stool heme test pending
-No previous EGD. Colonoscopy in 2010 showing diverticular disease
-not on blood thinners
-Hbg 8.3
-S/p 1 u prbc
For type 2 diabetes mellitus
Iron deficiency anemia
Thrombocytopenia
Moderate aortic stenosis
Severe degenerative joint disease of spine
Essential hypertension
History of diverticulosis
Gastroesophageal reflux disease
Hyperlipidemia
Dementia without behavioral problems
DVT prophylaxis-subcutaneous heparin
DNR status
Total time spent on today's encounter was 52 minutes which included time spent in counseling the patient/family regarding diagnosis and treatment plan as listed above, goals of care, and symptom management. Case was discussed with nursing staff,
specialists, and care coordinators/case management. All labs and imaging personally reviewed by me. Remainder the time spent in detailed review of previous records, lab data, imaging, and other medical provider documentation.
Anticipated Discharge: 24 - 48 hours
Subjective/Interval History
-
Date of Service: May 30, 2024
Patient looks frail overall. On supplemental oxygen
Objective Data
-
Labs:
Laboratory Results
05/30/24
05:42
WBC 21.6 H
Hgb 8.7 L
Hct 27.0 L
Plt Count 205 D
Sodium 143
Potassium 3.4 L
Chloride 111 H
Carbon Dioxide 22
BUN 24 H
Creatinine 0.9
Glucose 165 H
Calcium 8.3 L
Vital Signs:
Vital Signs
Temp Pulse Resp BP Pulse Ox
97.6 F 73 16 149/61 100
05/30/24 07:24 05/30/24 07:24 05/30/24 07:24 05/30/24 07:24 05/30/24 07:24
--- NOTE | 2024-05-30 10:18 | W.PN.ID1 ---
Date of Service
Date of Service: May 30, 2024
Today's Communication
- c/w ceftriaxone day 8 14 of rx - eventual transition to cefdinir when taking oral medications
- prognosis guarded in the medium term of months, concern for recurrent aspiration, progressive acquisition of resistant pathogens, eventual ; I have discussed at length with both sons on different dates
Assessment / Plan
Probable Aspiration Pneumonia
Dysphagia
OLI on CKD
Dementia
Bradycardia - resolved
Pancreatitis - resolving, likely due to previous hypothermia/hypotension
- overall favor aspiration pneumonia, suspect aspiration may have been going on for some time
- leukocytosis persists - may be aspirating own secretions
- c/w ceftriaxone day 8 of 14 of rx - eventual transition to cefdinir when taking oral medications
- prognosis guarded in the medium term of months, concern for recurrent aspiration, progressive acquisition of resistant pathogens, eventual ; I have discussed at length with both sons on different dates
Chief Complaint
-: UTI and Other (septic shock)
Subjective / Review of Systems
afebrile
bp stable
remains NPO
no events overnight, no complaints
Vital Signs / Physical Exam
Vital Signs
Vital Signs
Temp Pulse Resp BP Pulse Ox
97.6 F 73 16 149/61 100
05/30/24 07:24 05/30/24 07:24 05/30/24 07:24 05/30/24 07:24 05/30/24 07:24
Physical Exam
Constitutional: No Acute Distress and Chronically Ill
Cardiovascular: Regular Rate and S1/S2; Negative Murmur or Rub
Pulmonary: Clear and Symmetric; Negative Wheezes or Rales
Gastrointestinal: Soft, Non Tender, Non Distended and Normal Bowel Sounds
Skin: Warm and Dry; Negative Rash or Jaundice
Objective Data
Lab Data
Lab Results
05/30/24 05:42
05/30/24 05:42
PT 14.1 Sec (11.4-14.6) 05/23/24 20:59
INR 1.06 05/23/24 20:59
APTT 35.5 Sec (23.4-35.0) H 05/23/24 20:59
Estimated Creat Clear 43 ml/min 05/30/24 05:42
Lactic Acid Cancelled 05/24/24 01:45
Total Bilirubin 0.3 mg/dl (0.2-1.3) 05/29/24 05:19
AST 43 U/L (14-36) H 05/29/24 05:19
ALT 50 U/L (0-35) H 05/29/24 05:19
Alkaline Phosphatase 116 U/L (38-126) 05/29/24 05:19
Most recent labs reviewed.
Chest X-Ray: Image Reviewed and Report Reviewed (upper lobe coarsening)
Micro Results:
05/23/24 21:49 Blood Culture - Final
Blood/Venous No Growth - Final Report
05/23/24 21:49 Blood Culture - Final
Blood/Venous No Growth - Final Report
05/26/24 03:44 Legionella Urinary Antigen - Final
Urine Negative for Legionella pneumophila Serogroup 1 antigen.
A negative result does not rule out the possiblity of
Legionella infection due to other serogroups or species of
Legionella. Clinical correlation is recommended.
Streptococcus pneumoniae Antigen (M - Final
Negative for Streptococcus pneumoniae antigen.
A negative result does not exclude infection with
Streptococcus pneumoniae. Clinical correlation is
recommended.
05/23/24 20:59 Urine Culture - Final
Urine
--- NOTE | 2024-05-30 10:30 | HOSPNOTE ---
Spoke with son Ba about hospice. He needs to verify with his siblings that they are all in agreement and the plan would be home with hospice services. If family agrees we will order equipment and transport will be needed and OOH DNR on chart and
we will get the patient home tomorrow 05/31.
[2024-05-30 12:19] LABS: Glucose - Point of Care 141 mg/dl (70-99)
[2024-05-30] MEDS: NOVOLOG FLEXPEN-LOW RESISTANCE SC ×2 (12:19→18:33)
[2024-05-30] MEDS: STERILE WATER FOR INJECTION 20 ML IV (15:06)
[2024-05-30] MEDS: ROCEPHIN 2000 MG IV (15:06)
[2024-05-30] MEDS: LASIX 40 MG IV (15:06)
--- NOTE | 2024-05-30 17:33 | CM ---
Received consult for hospice.
Ba easton [phone] in contact with hospice [facility]
Hospice working on dc plan
[facility] spoke with son.
Weaned off oxygen.
PLAN hospice to evaluate and treat
[2024-05-30 18:22] LABS: Glucose - Point of Care 145 mg/dl (70-99)
[2024-05-31 00:22] LABS: Glucose - Point of Care 206 mg/dl (70-99)
[2024-05-31] MEDS: NOVOLOG FLEXPEN-LOW RESISTANCE 2 UNITS SC ×2 (00:24→17:54)
[2024-05-31 02:35] VITALS: BP 168/72; BMI 26.3
[2024-05-31 05:32] LABS: Glucose - Point of Care 142 mg/dl (70-99)
[2024-05-31] MEDS: NOVOLOG FLEXPEN-LOW RESISTANCE SC (05:33)
[2024-05-31 07:05] VITALS: BP 158/61
[2024-05-31 07:59] LABS: Blood Urea Nitrogen 21 mg/dl (7-17); Calcium 8.2 mg/dl (8.4-10.2); Carbon Dioxide 24 mmol/L (22-30); Chloride 107 mmol/L (98-107); Estimated Creatinine Clearance 39 ml/min; Glucose 207 mg/dl (70-99); Potassium 3.3 mmol/L (3.5-5.1); Sodium 140 mmol/L (135-145); eGFR > 60.00
[2024-05-31] MEDS: DESENEX/MITRAZOL/ZEASORB 1 APPLIC TOPICAL ×2 (08:06→19:56)
--- NOTE | 2024-05-31 08:45 | W.PN.HOSP.TC ---
Today's Communication/Plan
-
Hospice coordination
Assessment / Plan
Assessment / Plan
Physical exam:
General: Acute on chronically ill
HEENT: Normocephalic, Atraumatic and dry Mucous Membranes
Respiratory: Coarse rhonchi bilateral; Negative Wheezes, Rales
Cardiac: Regular Rhythm and S1/S2
GI: Soft, Nontender and Nondistended
Musculoskeletal: No Clubbing, No Cyanosis and No Edema
Neuro: Awake, Alert and Disoriented, no grossly neurological deficits
Psych: Limited judgment and insight
Diagnostic tools:
Chest x-ray-new tiny right pleural effusion, mild cardiomegaly, mild elevation of right hemidiaphragm
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 Severe multilevel lower lumbar discogenic DJD. Severe calcific atherosclerotic plaques in femoral arteries. Diffuse bone demineralization
Echo 1 22-25-LVEF 50 to 55%. Mild mitral stenosis. Moderate AAS. Mild to moderate TR
CT scan of the abdomen and pelvis-small bilateral pleural effusions. Moderate right lower lobe and mild left lower lobe consolidation. Possible pancreatitis. Simple cyst in the left kidney. Prior cholecystectomy. Severe atherosclerotic vascular
disease. Moderate fecal material throughout the colon. Mild diverticulosis.

A/P:
1. Septic shock- POA. Shock resolved.
Source likely aspiration pneumonia. Blood cultures negative
-Currently on Rocephin
-ID on board
-Speech therapy reevaluated patient today. VSE noticed ongoing aspiration and recommended keep n.p.o.
-Noted several discussions about goals of care by several physicians. On my view, patient is a hospice candidate therefore will have hospice consult and will discuss with family in detail. Ultimately, it will be up to the family for final
decision. Discussed with son, aB-family is leaning towards hospice and they are on discussions with hospice at the moment.
Plan to start comfort diet and stop antibiotics tomorrow
2. Dysphagia with recurrent aspiration events
-Speech therapy reevaluated patient today. VSE noticed aspiration recommended keep n.p.o.
-Keep n.p.o. and cont IV fluids
-IV Lasix today to keep balance of volume
3. Acute toxic metabolic encephalopathy - waxing/waning
Dysphagia
Episode of hypoglycemia
-Encephalopathy due to above and underlying dementia
-She has received D10 and D5 over the last several days. Restarted D5 half-normal saline.
4. Facial droop -resolved
-Patient was more somnolent/sedated today and noted to having facial droop on exam by nurse
-Stroke alert was called and neurology consulted, CT head stroke neg
-MRI brain neg.
5. Bradycardia
-Suspected from hypothermia at admission from sepsis
-Hold metoprolol as well
-Required dopamine support
-Echocardiogram showed preserved ejection fraction
-Cardiology following and pacemaker if have any other future indication
6. Acute pancreatitis
-No abdominal pain/nausea vomiting at this point
-Lipase almost normalized
-Will be started on diet once clears speech evaluation
6. Acute kidney injury
hold losartan hydrochlorothiazide. Continue IV fluids.
7. Microcytic anemia
SHANA
-Ferritin 49, stool heme test pending
-No previous EGD. Colonoscopy in 2010 showing diverticular disease
-not on blood thinners
-Hbg 8.3
-S/p 1 u prbc
For type 2 diabetes mellitus
Iron deficiency anemia
Thrombocytopenia
Moderate aortic stenosis
Severe degenerative joint disease of spine
Essential hypertension
History of diverticulosis
Gastroesophageal reflux disease
Hyperlipidemia
Dementia without behavioral problems
DVT prophylaxis-subcutaneous heparin
DNR status
Anticipated Discharge: Within 24 hours
Subjective/Interval History
-
Date of Service: May 31, 2024
No new events.
Objective Data
-
Labs:
Laboratory Results
05/31/24
07:01
Sodium 140
Potassium 3.3 L
Chloride 107
Carbon Dioxide 24
BUN 21 H
Creatinine 0.9
Glucose 207 H
Calcium 8.2 L
Vital Signs:
Vital Signs
Temp Pulse Resp BP Pulse Ox
97.4 F 72 18 158/61 93
05/31/24 07:05 05/31/24 07:05 05/31/24 07:05 05/31/24 07:05 05/31/24 07:05
--- NOTE | 2024-05-31 08:50 | W.PN.CD ---
Today's Communication / Plan
-
Cardiology will sign off
Impression / Plan
-
Background: 88F with SVT, hypertension, hyperlipidemia, type 2 diabetes mellitus, cardioembolic stroke, aortic stenosis, and dementia who presented after a fall. She was confused, having difficulty weightbearing, hypothermic, and was found to be
bradycardic with sinus pauses.
Primary labor standards director: Dr. Dennis Askew
Bradycardia, from acute metabolic abnormalities (sepsis/hypothermia)
- Pacemaker not indicated
- Resolved and not recurrent
- Tele good last 24 hrs
- Stay off metoprolol
- 30 sec asystole in ED; then with periods of complete heart block and 2:1 in ICU, dopamine now off
- Last complete heart block was 05/24 at approx 1130amS/p iatrogenic volume overload after treatment for sepsis
Improved iatrogenic volume overload
- Off Lasix, last dose 05/30/2023
Hypokalemia
- Improving off Lasix now, s/p repleation of K+
Improved/resolved: Septic shock and hypothermia felt to be from aspiration PNA
Recurrent aspiration
Valvular heart disease
- Echo 05/24/2024: EF 50-55%, mild MS, moderate , mild/mod TR
PVC's
CKD3a, stable
Anemia, 1 unit PRBC (Hgb 6.9) this admit. Monitor
Hypertension, agents on hold
PSVT, follow telemetry; Toprol XL stopped (see above)
Prior CVA, no atrial fibrillation on outpatient cardiac monitoring, on daily aspirin at home
NIDDM, on oral agents in the outpatient setting, per primary
Alzheimer's dementia, on memantine
Subjective: Comfortable
Physical Exam
Vital Signs/Labs
Vital Signs
Temp Pulse Resp BP Pulse Ox
97.4 F 72 18 158/61 93
05/31/24 07:05 05/31/24 07:05 05/31/24 07:05 05/31/24 07:05 05/31/24 07:05
05/30/24 05/31/24 06/01/24
06:59 06:59 06:59
Actual Weight 69.485 kg
05/30/24 05:42
05/31/24 07:01
PT 14.1 Sec (11.4-14.6) 05/23/24 20:59
INR 1.06 05/23/24 20:59
APTT 35.5 Sec (23.4-35.0) H 05/23/24 20:59
Magnesium 1.9 mg/dl (1.6-2.3) 05/30/24 05:42
Triglycerides 86 mg/dl (10-149) 05/24/24 03:38
LDL Cholesterol, Calc 22 mg/dl 05/24/24 03:38
VLDL Cholesterol, Calc 17 mg/dl (0-30) 05/24/24 03:38
HDL Cholesterol 92 mg/dl 05/24/24 03:38
TSH 2.10 uIU/ml (0.47-4.68) 05/24/24 03:38
05/23/24
20:59
[id number] Pept 491
Physical Exam
Constitutional: No acute distress
EENT: Anicteric
Cardiovascular: Rhythm & rate is regular and Pedal edema is absent
Respiratory: Respiratory effort normal and Lungs clear to auscul.
GI: Soft and Distention absent
Neuro/Psych: Alert
Data Reviewed
-
Date of Service: May 31, 2024
[2024-05-31] MEDS: KCL 270 MEQ IV (09:27)
[2024-05-31 11:05] VITALS: BP 141/66
--- NOTE | 2024-05-31 11:26 | CM ---
Addendum entered by Leticia Tolbert RN 05/31/24 16:12:
Spoke with rustam Cosme reviewed dc for tomorrow.Ambulance set up for 12:00 noon . Hospice [facility] aware.
IMM reviewed and emailed to [email or web address] as requested.
Original Note:
Spoke with [facility] from [facility].
Dc to home tomorrow is plan to home.
Will confirm address and complete medical nec forms.
Requested MD sign DNR OOH form.
LM with Ba easton [phone] to confirm dc plan .
PLAN Home with hospice
[2024-05-31 11:50] LABS: Glucose - Point of Care 168 mg/dl (70-99)
--- NOTE | 2024-05-31 12:03 | HOSPNOTE ---
Patient will be going home with hospice 05/22/24 OOH DNR will be needed on chart and transport will be needed. CM Attending aware of plan. Transport will be scheduled for 12noon. Equipment will be delivered in the am, once patient is home hospice
will admit.
[2024-05-31] MEDS: NOVOLOG FLEXPEN-LOW RESISTANCE 1 UNITS SC (12:08)
[2024-05-31] MEDS: D5/0.45%NSS with KCL 20 MEQ 1000 IV (12:14)
--- NOTE | 2024-05-31 12:59 | W.PN.ID1 ---
Date of Service
Date of Service: May 31, 2024
Today's Communication
- overall favor aspiration pneumonia, suspect aspiration may have been going on for some time
- leukocytosis persists - may be aspirating own secretions; repeat CXR without evidence for development of lung abscess
- agree with transition to hospice - stop antibiotics when transition made
Assessment / Plan
Probable Aspiration Pneumonia
Dysphagia
OLI on CKD
Dementia
Bradycardia - resolved
Pancreatitis - resolving, likely due to previous hypothermia/hypotension
- overall favor aspiration pneumonia, suspect aspiration may have been going on for some time
- leukocytosis persists - may be aspirating own secretions; repeat CXR without evidence for development of lung abscess
- agree with transition to hospice - stop antibiotics when transition made
Chief Complaint
-: Pneumonia and Other (septic shock)
Subjective / Review of Systems
afebrile
bp stable
no events overnight
last recorded BM 05/29
Vital Signs / Physical Exam
Vital Signs
Vital Signs
Temp Pulse Resp BP Pulse Ox
98.0 F 71 19 141/66 96
05/31/24 11:05 05/31/24 11:05 05/31/24 11:05 05/31/24 11:05 05/31/24 11:05
Physical Exam
Constitutional: No Acute Distress and Chronically Ill
Cardiovascular: Regular Rate and S1/S2; Negative Murmur or Rub
Pulmonary: Clear and Symmetric; Negative Wheezes or Rales
Gastrointestinal: Soft, Non Tender, Non Distended and Normal Bowel Sounds
Skin: Warm and Dry; Negative Rash or Jaundice
Objective Data
Lab Data
Lab Results
05/30/24 05:42
05/31/24 07:01
PT 14.1 Sec (11.4-14.6) 05/23/24 20:59
INR 1.06 05/23/24 20:59
APTT 35.5 Sec (23.4-35.0) H 05/23/24 20:59
Estimated Creat Clear 39 ml/min 05/31/24 07:01
Lactic Acid Cancelled 05/24/24 01:45
Total Bilirubin 0.3 mg/dl (0.2-1.3) 05/29/24 05:19
AST 43 U/L (14-36) H 05/29/24 05:19
ALT 50 U/L (0-35) H 05/29/24 05:19
Alkaline Phosphatase 116 U/L (38-126) 05/29/24 05:19
Most recent labs reviewed.
Micro Results:
05/23/24 21:49 Blood Culture - Final
Blood/Venous No Growth - Final Report
05/23/24 21:49 Blood Culture - Final
Blood/Venous No Growth - Final Report
05/26/24 03:44 Legionella Urinary Antigen - Final
Urine Negative for Legionella pneumophila Serogroup 1 antigen.
A negative result does not rule out the possiblity of
Legionella infection due to other serogroups or species of
Legionella. Clinical correlation is recommended.
Streptococcus pneumoniae Antigen (M - Final
Negative for Streptococcus pneumoniae antigen.
A negative result does not exclude infection with
Streptococcus pneumoniae. Clinical correlation is
recommended.
05/23/24 20:59 Urine Culture - Final
Urine
Care Review
Plan reviewed with: Physician (Dr Daniels - hospice)
[2024-05-31] MEDS: STERILE WATER FOR INJECTION 20 ML IV (13:48)
[2024-05-31] MEDS: ROCEPHIN 2000 MG IV (13:48)
[2024-05-31 15:05] VITALS: BP 156/65
[2024-05-31 17:52] LABS: Glucose - Point of Care 200 mg/dl (70-99)
[2024-05-31 19:00] VITALS: BP 101/67
[2024-05-31 23:00] VITALS: BP 143/70
[2024-06-01 00:35] LABS: Glucose - Point of Care 128 mg/dl (70-99)
[2024-06-01] MEDS: NOVOLOG FLEXPEN-LOW RESISTANCE SC (00:36)
[2024-06-01] MEDS: D5/0.45%NSS with KCL 20 MEQ 1000 IV (00:49)
[2024-06-01 03:00] VITALS: BP 119/74
[2024-06-01 05:18] LABS: Glucose - Point of Care 194 mg/dl (70-99)
[2024-06-01] MEDS: NOVOLOG FLEXPEN-LOW RESISTANCE 1 UNITS SC (05:20)
[2024-06-01 06:00] VITALS: BMI 26.2
[2024-06-01] MEDS: D5/0.45%NSS with KCL 20 MEQ IV (07:34)
[2024-06-01] MEDS: DESENEX/MITRAZOL/ZEASORB 1 APPLIC TOPICAL (07:34)
[2024-06-01 07:41] VITALS: BP 150/76
--- NOTE | 2024-06-01 08:53 | W.PN.HOSP.TC ---
Today's Communication/Plan
-
Discharge to home hospice today
Assessment / Plan
Assessment / Plan
Physical exam:
General: Acute on chronically ill
HEENT: Normocephalic, Atraumatic and dry Mucous Membranes
Respiratory: Coarse rhonchi bilateral; Negative Wheezes, Rales
Cardiac: Regular Rhythm and S1/S2
GI: Soft, Nontender and Nondistended
Musculoskeletal: No Clubbing, No Cyanosis and No Edema
Neuro: Awake, Alert and Disoriented, no grossly neurological deficits
Psych: Limited judgment and insight
Diagnostic tools:
Chest x-ray-new tiny right pleural effusion, mild cardiomegaly, mild elevation of right hemidiaphragm
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 Severe multilevel lower lumbar discogenic DJD. Severe calcific atherosclerotic plaques in femoral arteries. Diffuse bone demineralization
Echo 1 22-25-LVEF 50 to 55%. Mild mitral stenosis. Moderate AAS. Mild to moderate TR
CT scan of the abdomen and pelvis-small bilateral pleural effusions. Moderate right lower lobe and mild left lower lobe consolidation. Possible pancreatitis. Simple cyst in the left kidney. Prior cholecystectomy. Severe atherosclerotic vascular
disease. Moderate fecal material throughout the colon. Mild diverticulosis.

A/P:
1. Septic shock- POA. Shock resolved.
Source likely aspiration pneumonia. Blood cultures negative
-Currently on Rocephin
-ID on board
-Speech therapy reevaluated patient today. VSE noticed ongoing aspiration and recommended keep n.p.o.
-Noted several discussions about goals of care by several physicians. On my view, patient is a hospice candidate therefore will have hospice consult and will discuss with family in detail. Ultimately, it will be up to the family for final
decision. Discussed with son, Ba-family is leaning towards hospice and they are on discussions with hospice at the moment.
Plan to start comfort diet and stop antibiotics today
2. Dysphagia with recurrent aspiration events
-Speech therapy reevaluated patient today. VSE noticed aspiration recommended keep n.p.o.
-Comfort feeding
-No more diuretic
3. Acute toxic metabolic encephalopathy - waxing/waning
Dysphagia
Episode of hypoglycemia
-Encephalopathy due to above and underlying dementia
-She has received D10 and D5 over the last several days. Restarted D5 half-normal saline.
4. Facial droop -resolved
-Patient was more somnolent/sedated today and noted to having facial droop on exam by nurse
-Stroke alert was called and neurology consulted, CT head stroke neg
-MRI brain neg.
5. Bradycardia
-Suspected from hypothermia at admission from sepsis
-Hold metoprolol as well
-Required dopamine support
-Echocardiogram showed preserved ejection fraction
-Cardiology following and pacemaker if have any other future indication
6. Acute pancreatitis
-No abdominal pain/nausea vomiting at this point
-Lipase almost normalized
-Will be started on diet once clears speech evaluation
6. Acute kidney injury
hold losartan hydrochlorothiazide. Continue IV fluids.
7. Microcytic anemia
SHANA
-Ferritin 49, stool heme test pending
-No previous EGD. Colonoscopy in 2010 showing diverticular disease
-not on blood thinners
-Hbg 8.3
-S/p 1 u prbc
For type 2 diabetes mellitus
Iron deficiency anemia
Thrombocytopenia
Moderate aortic stenosis
Severe degenerative joint disease of spine
Essential hypertension
History of diverticulosis
Gastroesophageal reflux disease
Hyperlipidemia
Dementia without behavioral problems
DVT prophylaxis-subcutaneous heparin
DNR status
Anticipated Discharge: Today
Subjective/Interval History
-
Date of Service: June 01, 2024
No new events
Objective Data
-
Vital Signs:
Vital Signs
Temp Pulse Resp BP Pulse Ox
97.5 F 65 16 150/76 100
06/01/24 07:41 06/01/24 08:30 06/01/24 07:41 06/01/24 07:41 06/01/24 08:30
I&O
05/31/24 06/01/24 06/02/24
06:59 06:59 06:59
Intake Total 1030 / 1030 400 / 400
Balance 1030 / 1030 400 / 400
--- NOTE | 2024-06-01 10:06 | CM ---
Son agrees with dc to home with Hospice today.
Dc to home today.
Spoke with son Ba [phone] offered foster care therapist list he said they did not need list.
Requested MD sign DNR OOH form.
Ambulance set up for 12:00 today.
PLAN Home with hospice
[2024-06-01 11:08] VITALS: BP 163/83
[2024-06-01 12:00] LABS: Glucose - Point of Care 174 mg/dl (70-99)
--- NOTE | 2024-06-01 12:49 | W.DCSUMMARY ---
Discharge Summary
Discharge Data
Date of Admission: 05/23/24
Date of Discharge: 06/01/24
-
Pending Results: No
Hospital Course
Patient 88-year-old female with history of dementia and diabetes came into the hospital with a fall and mental status changes. She was evaluated by cardiology and pulmonary. She was in shock and transient bradycardia. Patient was found to have
aspiration pneumonia and was treated with antibiotics. She was evaluated and felt that she was at risk of recurrent aspiration so hospice was consulted. Neurology evaluated the patient as well and was felt that she had metabolic encephalopathy.
After detailed discussions with family they agreed to move forward with hospice care at home. Patient is being discharged to home hospice today with goals of comfort. No other events were noticed.
Discharge duration: 34 minutes
Discharge Plan
-
Patient Disposition: Home with Hospice
Discharge Diagnosis/Procedures: Aspiration pneumonia
Diet: Regular
Activity: As tolerated
Referrals:
Evi Zheng CRNP [Family Provider] -
Prescriptions:
Continued
losartan-hydrochlorothiazide 1 EACH tablet
1 ea PO DAILY
doxycycline hyclate 20 MG tablet
1 tab PO MOWEFR PRN (Reason: rosacea)
glipizide 10 MG tablet extended release 24hr
20 mg PO DAILY
omeprazole 20 MG capsule,delayed release(DR/EC)
20 mg PO PRN PRN (Reason: gerd)
Ca-D3-mag tg-cfno-toc-georgi-bor [Calcium 600-D3 Plus (mag-zinc)] 1 EACH tablet
1 ea PO DAILY
calcium carbonate [Antacid (calcium carbonate)] 1 TABLET tablet,chewable
1 tab PO PRN PRN (Reason: GERD)
metoprolol succinate 25 mg tablet extended release 24 hr
25 mg PO DAILY
Discharge Orders:
Discharge Patient (As Directed); Ordered 06/01/24
Ordered By: Ryley Daneils
Discharge Date and Time
Discharge Date/Time: 06/01/24 13:24
Print Language: KHMER
== END 2024-06-01 13:24 | disposition hospice, home (50) | DRG 871 ==
LOC: 3 WEST ACU 23:42
PROVIDERS: Hospitalist; Nurse Practitioner Gerontology; ADMITTING PHYSICIAN Internal Medicine; ATTENDING PHYSICIAN Hospitalist; CONSULT PHYSICIAN Psychiatry & Neurology Neurology; CONSULT PHYSICIAN Student in an Organized Health Care Education/Training Program; EMERGENCY PHYSICIAN Student in an Organized Health Care Education/Training Program; FAMILY PHYSICIAN Nurse Practitioner Primary Care; OTHER PHYSICIAN Internal Medicine; OTHER PHYSICIAN Internal Medicine Critical Care Medicine
PROC: 30233N1 Transfusion of Nonautologous Red Blood Cells into Peripheral Vein, Percutaneous Approach (ICD-10-PCS; 2024-05-26)
DX: A41.9 Sepsis, unspecified organism (principal); G92.8 Other toxic encephalopathy; J69.0 Pneumonitis due to inhalation of food and vomit; J96.01 Acute respiratory failure with hypoxia; R65.21 Severe sepsis with septic shock; K85.90 Acute pancreatitis without necrosis or infection, unspecified; Z66 Do not resuscitate; Z51.5 Encounter for palliative care; J18.9 Pneumonia, unspecified organism; N39.0 Urinary tract infection, site not specified; D61.818 Other pancytopenia; I44.2 Atrioventricular block, complete; I47.10 Supraventricular tachycardia, unspecified; N17.9 Acute kidney failure, unspecified; F02.811 Dementia in other diseases classified elsewhere, unspecified severity, with agitation; E87.20 Acidosis, unspecified; M16.0 Bilateral primary osteoarthritis of hip; R00.1 Bradycardia, unspecified; I12.9 Hypertensive chronic kidney disease with stage 1 through stage 4 chronic kidney disease, or unspecified chronic kidney disease; E11.22 Type 2 diabetes mellitus with diabetic chronic kidney disease; R68.0 Hypothermia, not associated with low environmental temperature; E78.00 Pure hypercholesterolemia, unspecified; G30.9 Alzheimer's disease, unspecified; M81.0 Age-related osteoporosis without current pathological fracture; I49.3 Ventricular premature depolarization; E87.6 Hypokalemia; K21.9 Gastro-esophageal reflux disease without esophagitis; K59.00 Constipation, unspecified; I08.3 Combined rheumatic disorders of mitral, aortic and tricuspid valves; R29.810 Facial weakness; D50.9 Iron deficiency anemia, unspecified; N18.31 Chronic kidney disease, stage 3a; Z96.653 Presence of artificial knee joint, bilateral; Z91.041 Radiographic dye allergy status; Z88.5 Allergy status to narcotic agent; Z79.84 Long term (current) use of oral hypoglycemic drugs; Z79.899 Other long term (current) drug therapy; Z86.73 Personal history of transient ischemic attack (TIA), and cerebral infarction without residual deficits; Z11.52 Encounter for screening for COVID-19
CPT/HCPCS: 36600; 70450; 70551; 71045; 71046; 73502; 73610; 74176; 74230; 80048; 80053; 80061; 81003; 81015; 82533; 82607; 82728; 82805; 82962; 83540; 83550; 83605; 83690; 83735; 83880; 84100; 84145; 84443; 84484; 85025; 85027; 85610; 85730; 86850; 86900; 86901; 86920; 87040; 87086; 87449; 87811; 87899; 92526; 92610; 92611; 93005; 93306; 96361; 96374; 99291; P9016